=== PATIENT | female | born 1965 | race Caucasian/White ===

== ENCOUNTER 2018-03-11 01:17 | Emergency (ER) | payer BC, OTHER ==
[~2018-03-11] VITALS: Ht 170.2 cm; Wt 97.5 kg
[~2018-03-11 01:17] MED LIST: ESIDRIX25 MG PO; GABAPENTIN300 MG PO; JANUMET 50-1,01 EACH; LIPITOR10 MG PO; LISINOPRIL20 MG; NORVASC5 MG PO
--- OUTSIDE RECORDS SUMMARY | 2018-03-11 01:22 | XMS REPORT ---
Author Author Sheryl Kennedy [facility] eClinicalWorks Address Unknown Phone Unavailable Care Team Providers Care Clinical Quality Manager Name Role Phone Sheryl Kennedy CP Unavailable Allergies, Adverse Reactions, Alerts Substance Reaction Event Type penicillin as a baby Drug Allergy Septra diarrhea/vomiting Drug Allergy Macrodantin Info Not Available Drug Allergy Macrobid vomiting Drug Allergy vancomycin Info Not Available Non Drug Allergy Problems Problem Type Condition Code Onset Dates Condition Status Problem Obstructive sleep apnea G47.33 Active Problem Cervical radiculopathy M54.12 Active Problem Benign essential hypertension I10 Active Problem Insomnia, unspecified type G47.00 Active Problem Type 2 diabetes mellitus with hyperglycemia E11.65 Active Problem Vitamin D deficiency E55.9 Active Problem Overweight E66.3 Active Problem Peripheral neuropathy G62.9 Active Problem GERD (gastroesophageal reflux disease) K21.9 Active Problem Hyperlipidemia E78.5 Active Assessment GERD (gastroesophageal reflux disease) K21.9 Active Assessment Type 2 diabetes mellitus with hyperglycemia E11.65 Active Assessment Hyperlipidemia E78.5 Active Assessment Insomnia, unspecified type G47.00 Active Assessment Benign essential hypertension I10 Active Assessment Vitamin D deficiency E55.9 Active Assessment Encntr for general adult medical exam w/o abnormal findings Z00.00 Active Medications Medication Code System Code Instructions Start Date End Date Status Dosage Lisinopril [facility] [address]-21 40 MG Orally Once a day Active 1 tablet Atorvastatin Calcium [facility] [address]-45 40 MG Orally Once a day Active [address] [facility] [address]-78 20 MG Orally Once a day Active 1 tablet at bedtime Fish Oil [facility] [address]-42 1000 mg Orally twice a day (bid) Active [address] [facility] [address]-77 4 MG Orally every 6 hrs Active 1 tablet as needed Norel AD [facility] 42442-697-53 4-10-325 MG Orally every 4-6 hours July 15, 2016 Active 1 tablet as needed Amlodipine Besylate [facility] 38938729765 10 Active TAKE ONE TABLET BY MOUTH DAILY Hydrochlorothiazide [facility] [address]-58 25 MG Orally Once a day Active [address] [facility] [address]-96 160 MG Orally Once a day Active 1 tablet with a meal Ambien [facility] [address]-30 10 MG Orally Once a day prn Dec 31, 2015 Active 1 tablet at bedtime as needed Levaquin [facility] [address]-65 500 MG Orally Once a day Active 1 tablet Toujeo SoloStar [facility] [address]-02 300 UNIT/ML Subcutaneous once a day Active 40 units Vitamin D (Ergocalciferol) [facility] [address]-81 55266 UNIT Orally once per week July 15, 2016 Dec 30, 2016 Active [address] [facility] [address]22 500 MG Orally Six times a day Active 2 tablets as needed Hydrocodone-Acetaminophen [facility] [address]-16 5-500 MG Orally every 6 hrs Active 1 capsule as needed Norvasc [facility] [address]-75 10 MG Orally Once a day Active [address] [facility] [address]-04 300 MG Orally Three times a day Active 1 capsule Janumet XR [facility] [address]-24 50-1000 MG Orally daily Active 1 tablet with meals Jardiance [facility] [address]-68 25 MG Orally Once a day Mar 05, 2017 Active 1 tablet Turmeric Curcumin [facility] [address]77 500 MG Orally Active not defined Cinnamon [facility] [address]-63 500 MG Orally Active not defined Trulicity 1.5mg [facility] 6480-4245-96 1.5mg/0.5mL SQ Once a week Mar 05, 2017 Active 1.5mg/1 pen Vital Signs Date/Time: September 06, 2016 BMI 32.92 Index Weight 204 lbs Height 66 in Cardiac Monitoring Heart Rate 85 /min Blood Pressure Diastolic 82 mm Hg Blood Pressure Systolic 112 mm Hg Results Name Result Date Reference Range Unit Abnormality Flag EKG MONOFILAMENT FOOT EXAMINATION PERFORMED Summary Purpose eClinicalWorks Submission
--- OUTSIDE RECORDS SUMMARY | 2018-03-11 01:22 | XMS REPORT ---
Author Author Phil Overton [facility] eClinicalWorks Address Unknown Phone Unavailable Care Team Providers Care Spinning Room Worker Name Role Phone Phil Overton CP Unavailable Allergies, Adverse Reactions, Alerts Substance Reaction Event Type penicillin as a baby Drug Allergy Septra diarrhea/vomiting Drug Allergy Macrodantin Info Not Available Drug Allergy Macrobid vomiting Drug Allergy vancomycin Info Not Available Non Drug Allergy Problems Problem Type Condition Code Onset Dates Condition Status Assessment Rib pain on right side R07.81 Active Problem Cervical radiculopathy M54.12 Active Assessment Acid indigestion K30 Active Problem Peripheral neuropathy G62.9 Active Assessment Esophagitis K20.9 Active Problem GERD (gastroesophageal reflux disease) K21.9 Active Problem Type 2 diabetes mellitus with hyperglycemia E11.65 Active Problem Hyperlipidemia E78.5 Active Problem Other obesity due to excess calories E66.09 Active Problem Body mass index (BMI) of 31.0-31.9 in adult Z68.31 Active Assessment RUQ abdominal pain R10.11 Active Assessment Hx of colonic polyp Z86.010 Active Problem Hx of colonic polyp Z86.010 Active Assessment Fatty liver K76.0 Active Problem Vitamin D deficiency E55.9 Active Problem Insomnia, unspecified type G47.00 Active Problem Acid indigestion K30 Active Problem Fatty liver K76.0 Active Assessment Hyperlipidemia E78.5 Active Assessment Peripheral neuropathy G62.9 Active Assessment Body mass index (BMI) of 31.0-31.9 in adult Z68.31 Active Assessment Other obesity due to excess calories E66.09 Active Problem Obstructive sleep apnea G47.33 Active Problem Benign essential hypertension I10 Active Assessment Benign essential hypertension I10 Active Assessment Type 2 diabetes mellitus with hyperglycemia E11.65 Active Medications Medication Code System Code Instructions Start Date End Date Status Dosage Fish Oil ND 28266358231 1000 mg Orally twice a day (bid) Active 1 capsule Gabapentin ND 85773956184 300 MG Orally Three times a day Active 1 capsule Trulicity 1.5mg ND 26532811331 1.5mg/0.5mL SQ Once a week Mar 05, 2017 Active 1.5mg/1 pen Cinnamon ND 45742431130 500 MG Orally Active not defined Atorvastatin Calcium ND 21755076897 40 MG Orally Once a day Active 1 tablet Turmeric Curcumin ND 61141275127 500 MG Orally Active not defined Ashleigh Contour Test [facility] 16882523494 - In Vitro use qid dx: October 05, 2016 Active as directed Microlet Lancets ND 58737279800 - in vitro use bid dx: E11October 05, 2016 Active as directed Hydrochlorothiazide ND 84708084102 25 MG Orally Once a day Active 1 tablet Lisinopril ND 83194838946 40 MG Orally Once a day Active 1 tablet Toujeo SoloStar [facility] 97259405475 300 UNIT/ML Subcutaneous once a day Active 40 units Jardiance ND 21816417507 25 MG Orally Once a day Mar 05, 2017 Active 1 tablet Norvasc [facility] 20909297322 10 MG Orally Once a day Active 1 tablet Famotidine ND 66168923583 20 MG Orally Once a day Active 1 tablet at bedtime Allergy ND 09872912781 4 MG Orally every 6 hrs Active 1 tablet as needed MetFORMIN HCl ER ND 22306152760 500 MG Orally twice a day (bid) Dec 02, 2016 Active 2 tablet with evening meal Fenofibrate ND 35303082279 160 MG Orally Once a day Active 1 tablet with a meal Vital Signs Date/Time: Feb 13, 2017 BMI 31.63 Index Weight 196 lbs Height 66 in Cardiac Monitoring Heart Rate 75 /min Blood Pressure Diastolic 74 mm Hg Blood Pressure Systolic 116 mm Hg Results Name Result Date Reference Range Unit Abnormality Flag Ribs Unil 2 View- Right Xray Summary Purpose eClinicalWorks Submission
--- OUTSIDE RECORDS SUMMARY | 2018-03-11 01:22 | XMS REPORT | Continuity of Care Document ---
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 [id number] 07/15/2015 07/15/2015 [facility] Test results [id number] 07/15/2015 07/15/2015 [facility] Test results [id number] 07/15/2015 07/15/2015 [facility] Test results [id number] 07/15/2015 07/15/2015 [facility] Test results [id number] 07/15/2015 07/15/2015 [facility] Test results [id number] 07/15/2015 07/15/2015 [facility] Test results [id number] 07/15/2015 07/15/2015 [facility] BITELY - [place] [id number] 07/17/2015 07/17/2015 [facility] [place] [id number] 07/17/2015 07/17/2015 [facility] [id number] 07/17/2015 07/17/2015 [facility] [id number] 07/17/2015 07/17/2015 [facility] [id number] 07/17/2015 07/17/2015 [facility] Unknown [id number] 07/17/2015 07/17/2015 [facility] Unknown [id number] 07/17/2015 07/17/2015 [facility] Unknown [id number] 07/17/2015 07/17/2015 [facility] Unknown [id number] 07/17/2015 07/17/2015 [facility] Unknown [id number] 07/17/2015 07/17/2015 [facility] Unknown [id number] 07/17/2015 07/17/2015 [facility] Unknown [id number] 07/17/2015 07/17/2015 [facility] [place] [id number] 07/17/2015 07/17/2015 [facility] Unknown [id number] 07/17/2015 07/17/2015 [facility] Unknown [id number] 07/17/2015 07/17/2015 [facility] Unknown [id number] 07/17/2015 07/17/2015 [facility] Unknown [id number] 07/17/2015 07/17/2015 [facility] Unknown [id number] 07/17/2015 07/17/2015 [facility] Unknown [id number] 07/17/2015 07/17/2015 [facility] ALEX - GUANAKO [id number] 08/05/2015 08/05/2015 [facility] ALEX - GUANAKO [id number] 08/05/2015 08/05/2015 [facility] ALEX - GUANAKO [id number] 08/05/2015 08/05/2015 [facility] ALEX BURNHAM [id number] 08/05/2015 08/05/2015 [facility] possible kidney inf [id number] 12/31/2015 12/31/2015 [facility] possible kidney inf [id number] 12/31/2015 12/31/2015 [facility] possible kidney inf [id number] 12/31/2015 12/31/2015 [facility] Ear infection [id number] 01/28/2016 01/28/2016 [facility] Ear infection [id number] 01/28/2016 01/28/2016 [facility] 3 MONTH FOLLOW UP [id number] 06/09/2016 06/09/2016 [facility] Procedures Procedure Code Date Perfomer Comments Source
--- OUTSIDE RECORDS SUMMARY | 2018-03-11 01:22 | XMS REPORT ---
Author Author Sera Duval Organization eClinicalWorks Address Unknown Phone Unavailable Care Team Providers Care Flash Welder Name Role Phone Sera Duval CP Unavailable Allergies No Known Allergies Problems Problem Type Condition Code Onset Dates [...] disease) K21.9 Active Problem Hyperlipidemia E78.5 Active Medications No Known Medications Results No Known Results Summary Purpose eClinicalWorks Submission
--- OUTSIDE RECORDS SUMMARY | 2018-03-11 01:22 | XMS REPORT ---
Author Author Phil Overton [facility] eClinicalWorks Address Unknown Phone Unavailable Care Team Providers Care Upper Doubler Name Role Phone Phil Overton CP Unavailable Allergies, Adverse Reactions, Alerts Substance Reaction Event Type penicillin as a baby Drug Allergy Septra diarrhea/vomiting Drug Allergy Macrobid vomiting Drug Allergy Problems Problem Type Condition Code [...] K21.9 Active Problem Hyperlipidemia E78.5 Active Assessment Encounter to discuss test results Z71.89 Active Assessment Acute non-recurrent pansinusitis J01.40 Active Assessment Type 2 diabetes mellitus with hyperglycemia E11.65 Active Assessment Hyperlipidemia E78.5 Active Assessment Vitamin D deficiency E55.9 Active Assessment Peripheral neuropathy G62.9 Active Assessment Insomnia, unspecified type G47.00 Active Assessment Benign essential hypertension I10 Active Medications Medication Code System Code Instructions Start Date End Date Status Dosage Amlodipine Besylate [facility] 01301063523 10 Active TAKE ONE TABLET BY MOUTH DAILY Janumet XR [facility] [address]-09 50-1000 MG Orally daily Active 1 tablet with meals Hydrochlorothiazide [facility] [address]-74 25 MG Orally Once a day Active 1 tablet Toujeo SoloStar [facility] [address]-60 300 UNIT/ML Subcutaneous once a day Active 40 units Jardiance [facility] [address]-27 25 MG Orally Once a day Active 1 tablet Famotidine [facility] [address]-53 20 MG Orally Once a day Active 1 tablet at bedtime Vitamin D (Ergocalciferol) [facility] [address]-15 87289 UNIT Orally once per week July 15, 2016 Dec 30, 2016 Active 1 capsule Lisinopril [facility] [address]-12 40 mg Orally Once a day Active 1 tablet Trulicity 1.5mg [facility] 4719-8433-82 1.5mg/0.5mL SQ Once a week Active 1.5mg/1 pen Fenofibrate [facility] [address]-97 160 MG Orally Once a day Active 1 tablet with a meal Levaquin [facility] [address]-67 500 MG Orally Once a day July 15, 2016 July 25, 2016 Active 1 tablet Norel AD [facility] 52439-617-15 4-10-325 MG Orally every 4-6 hours July 15, 2016 Active 1 tablet as needed Atorvastatin Calcium [facility] [address]-14 40 MG Orally Once a day Active 1 tablet Ambien [facility] [address]-12 10 MG Orally Once a day prn Dec 31, 2015 Active 1 tablet at bedtime as needed Norvasc [facility] [address]-12 10 MG Orally Once a day Active 1 tablet Gabapentin [facility] [address]-37 300 MG Orally Three times a day Active 1 capsule Fish Oil [facility] [address]-41 1000 mg Orally twice a day (bid) Active 1 capsule Vital Signs Date/Time: July 15, 2016 BMI 31.95 Index Weight 198 lbs Height 66 in Cardiac Monitoring Heart Rate 84 /min Blood Pressure Diastolic 78 mm Hg Blood Pressure Systolic 124 mm Hg Results No Known Results Summary Purpose eClinicalWorks Submission
--- OUTSIDE RECORDS SUMMARY | 2018-03-11 01:22 | XMS REPORT ---
Author Author Sheryl Kennedy [facility] eClinicalWorks Address Unknown Phone Unavailable Care Team Providers Care Zigzag Elastic Attacher Name Role Phone Sheryl Kennedy CP Unavailable Allergies No Known Allergies Problems [...] K21.9 Active Problem Hyperlipidemia E78.5 Active Medications Medication Code System Code Instructions Start Date End Date Status Dosage Microlet Lancets [facility] [address]-33 - in vitro use bid dx: October 05, 2016 Active as directed Ashleigh Contour Test [facility] [address]-90 - In Vitro use qid dx: October 05, 2016 Active as directed Results No Known Results Summary Purpose eClinicalWorks Submission
--- OUTSIDE RECORDS SUMMARY | 2018-03-11 01:22 | XMS REPORT ---
Author Mandy Rivas [facility] eClinicalWorks Address Unknown Phone Unavailable Care Team Providers Care Manager Pmo Name Role Phone Mandy Adams CP Unavailable Allergies, Adverse Reactions, Alerts Substance Reaction Event Type penicillin as a baby Drug Allergy Septra diarrhea/vomiting Drug Allergy Macrodantin Info Not Available Drug Allergy Macrobid vomiting Drug Allergy vancomycin Info Not Available Non Drug Allergy Problems Problem Type Condition Code Onset Dates Condition Status Problem GERD (gastroesophageal reflux disease) K21.9 Active Problem Type 2 diabetes mellitus with hyperglycemia E11.65 Active Problem Hyperlipidemia E78.5 Active Problem Other obesity due to excess calories E66.09 Active Problem Body mass index (BMI) of 31.0-31.9 in adult Z68.31 Active Problem Hx of colonic polyp Z86.010 Active Problem Vitamin D deficiency E55.9 Active Problem Insomnia, unspecified type G47.00 Active Problem Acid indigestion K30 Active Problem Fatty liver K76.0 Active Assessment Strain of right wrist, initial encounter S66.911A Active Problem Obstructive sleep apnea G47.33 Active Problem Benign essential hypertension I10 Active Assessment Plantar fasciitis of left foot M72.2 Active Problem Cervical radiculopathy M54.12 Active Assessment Dysuria R30.0 Active Problem Peripheral neuropathy G62.9 Active Medications Medication Code System Code Instructions Start Date End Date Status Dosage Famotidine [facility] 99500220689 20 MG Orally Once a day Active 1 tablet at bedtime Vitamin D (Ergocalciferol) [facility] 84252769145 50,000 Orally once per week Active 1 capsule Jardiance [facility] 78954734513 25 MG Orally Once a day Active 1 tablet MetFORMIN HCl ER [facility] [address]-12 500 mg Orally twice a day (bid) Dec 02, 2016 Active 2 tablet with evening meal Doxycycline [facility] [address]-31 50 mg Orally Once a day Active 1 capsule on an empty stomach in the morning Norvasc [facility] 21457320777 10 MG Orally Once a day Active 1 tablet Toujeo SoloStar [facility] 49352657238 300 UNIT/ML Subcutaneous once a day Active 40 units Microlet Lancets [facility] 76546936386 - in vitro use bid dx: E11.65 Active as [facility] [address]-26 10 Active TAKE ONE TABLET BY MOUTH DAILY Gabapentin [facility] 91141829306 300 MG Orally Three times a day Active 1 capsule Vitamin D (Ergocalciferol) [facility] 83874283131 72132 UNIT Orally q weekly, LAST REFILL, MUST SEE DOCTOR Apr 19, 2017 Active 1 capsule MetFORMIN HCl ER [facility] 56929273142 500 Orally twice a day (bid) Active 2 tablet with evening meal Atorvastatin Calcium [facility] 10290055219 40 MG Orally Once a day Active 1 tablet Fenofibrate [facility] 19728570082 160 MG Orally Once a day Active 1 tablet with a meal Allergy [facility] 13667559390 4 MG Orally every 6 hrs Active 1 tablet as needed Lisinopril [facility] 22899328596 40 MG Orally Once a day Active 1 tablet Ashleigh Contour Test [facility] 16649355783 - Active CHECK BLOOD SUGAR FOUR TIMES A DAY Trulicity 1.5mg [facility] 67516532067 1.5mg/0.5mL SQ Once a week Active 1.5mg/1 pen Myrbetriq [facility] 29160113233 25 MG Orally Once a day Active 1 tablet Vital Signs Date/Time: May 16, 2017 BMI 31.63 Index Weight 196 lbs Height 66 in Cardiac Monitoring Heart Rate 70 /min Blood Pressure Diastolic 88 mm Hg Blood Pressure Systolic 120 mm Hg Results Name Result Date Reference Range Unit Abnormality Flag URINE AUTO W/O SCOPE ----Spec [place] 1.015 20170516 ----Turbidity Clear 20170516 ----Glucose Clear 20170516 ----Ketones Neg 20170516 ----Blood Trace 20170516 ----Bili Neg 20170516 ----Color [place] 20170516 ----pH 6.0 20170516 ----Leuk Est Neg 20170516 ----Nitrite Neg 20170516 ----Urobilinogen 0.2 20170516 ----Protein Neg 20170516 Summary Purpose eClinicalWorks Submission
--- OUTSIDE RECORDS SUMMARY | 2018-03-11 01:22 | XMS REPORT ---
Author Author Sera Duval Organization eClinicalWorks Address Unknown Phone Unavailable Care Team Providers Care Costume Designer Name Role Phone Sera Duval CP Unavailable Allergies No Known Allergies Problems Problem Type Condition Code Onset Dates Condition Status Problem Cervical radiculopathy M54.12 Active Problem Overweight E66.3 Active Problem Peripheral neuropathy G62.9 Active Problem Obstructive sleep apnea G47.33 Active Problem Benign essential hypertension I10 Active Problem BMI 32.0-32.9,adult Z68.32 Active Problem Vitamin D deficiency E55.9 Active Problem Fatty liver K76.0 Active Problem GERD (gastroesophageal reflux disease) K21.9 Active Problem Hyperlipidemia E78.5 Active Problem Insomnia, unspecified type G47.00 Active Problem Type 2 diabetes mellitus with hyperglycemia E11.65 Active Medications No Known Medications Results No Known Results Summary Purpose eClinicalWorks Submission
--- OUTSIDE RECORDS SUMMARY | 2018-03-11 01:22 | XMS REPORT ---
Author Author Sheryl Kennedy [facility] eClinicalWorks Address Unknown Phone Unavailable Care Team Providers Care Central Aisle Cashier Name Role Phone Sheryl Kennedy CP Unavailable [...] K21.9 Active Problem Hyperlipidemia E78.5 Active Assessment Visit for suture removal Z48.02 Active Assessment Plantar fasciitis M72.2 Active Assessment Colon cancer screening Z12.11 Active Assessment RUQ pain R10.11 Active Medications Medication Code System Code Instructions Start Date End Date Status Dosage Jardiance [facility] [address]-40 25 MG Orally Once a day Mar 05, 2017 Active 1 tablet Janumet XR [facility] [address]-01 50-1000 MG Orally daily Active 1 tablet with meals Microlet Lancets [facility] [address]-12 - in vitro use bid dx: E11October 05, 2016 Active as directed Ashleigh Contour Test [facility] [address]-05 - In Vitro use bid dx: E11October 05, 2016 Active as directed Gabapentin [facility] [address]-74 300 MG Orally Three times a day Active 1 capsule Allergy [facility] [address]-01 4 MG Orally every 6 hrs Active 1 tablet as needed Hydrochlorothiazide [facility] [address]-08 25 MG Orally Once a day Active 1 tablet MiraFIBER [facility] 90443-30436 500 MG Orally Six times a day Active 2 tablets as needed Trulicity 1.5mg [facility] 9401-0706-58 1.5mg/0.5mL SQ Once a week Mar 05, 2017 Active 1.5mg/1 pen Ambien [facility] [address]-40 10 MG Orally Once a day prn Dec 31, 2015 Active 1 tablet at bedtime as needed Norvasc [facility] [address]-34 10 MG Orally Once a day Active 1 tablet Fish Oil [facility] [address]-17 1000 mg Orally twice a day (bid) Active 1 capsule Atorvastatin Calcium [facility] [address]-47 40 MG Orally Once a day Active 1 tablet Famotidine [facility] [address]-95 20 MG Orally Once a day Active 1 tablet at bedtime Hydrocodone-Acetaminophen [facility] [address]-51 5-500 MG Orally every 6 hrs Active 1 capsule as needed Lisinopril [facility] [address]-78 40 MG Orally Once a day Active 1 tablet Vitamin D (Ergocalciferol) [facility] [address]-69 98243 UNIT Orally once per week July 15, 2016 Dec 30, 2016 Active 1 capsule Amlodipine Besylate [facility] 36450604789 10 Active TAKE ONE TABLET BY MOUTH DAILY Levaquin [facility] [address]-62 500 MG Orally Once a day Active 1 tablet Fenofibrate [facility] [address]-31 160 MG Orally Once a day Active 1 tablet with a meal Norel AD [facility] [address]822-89 4-10-325 MG Orally every 4-6 hours July 15, 2016 Active 1 tablet as needed Tougenao SoloStar [facility] [address]-09 300 UNIT/ML Subcutaneous once a day Active 40 units Turmeric Curcumin [facility] 94103-04378 500 MG Orally Active not defined Cinnamon [facility] [address]-85 500 MG Orally Active not defined Vital Signs Date/Time: November 01, 2016 BMI 32.60 Index Weight 202 lbs Height 66 in Cardiac Monitoring Heart Rate 70 /min Blood Pressure Diastolic 84 mm Hg Blood Pressure Systolic 116 mm Hg Results No Known Results Summary Purpose eClinicalWorks Submission
--- OUTSIDE RECORDS SUMMARY | 2018-03-11 01:22 | XMS REPORT ---
Author Author Sheryl Kennedy [facility] eClinicalWorks Address Unknown Phone Unavailable Care Team Providers Care Button Decorating Machine Operator Name Role Phone Sheryl Kennedy CP Unavailable [...] Date End Date Status Dosage Microlet Lancets [facility] [address]-40 - in vitro use bid dx: E11October 05, 2016 Active as directed Ashleigh Contour Test [facility] [address]-71 - In Vitro use bid dx: October 05, 2016 Active as directed Results No Known Results Summary Purpose eClinicalWorks Submission
--- OUTSIDE RECORDS SUMMARY | 2018-03-11 01:22 | XMS REPORT ---
Author Author Sera Duval Organization eClinicalWorks Address Unknown Phone Unavailable Care Team Providers Care Elementary Reading Tutor Name Role Phone Sera Duval CP Unavailable Allergies No Known Allergies Problems Problem Type Condition Code Onset Dates Condition Status Problem Overweight E66.3 Active Problem Peripheral neuropathy G62.9 Active Problem Cervical radiculopathy M54.12 Active Problem Obstructive sleep apnea G47.33 Active Problem Benign essential hypertension I10 Active Problem BMI 32.0-32.9,adult Z68.32 Active Problem Vitamin D deficiency E55.9 Active Problem Fatty liver K76.0 Active Problem Hyperlipidemia E78.5 Active Problem GERD (gastroesophageal reflux disease) K21.9 Active Problem Insomnia, unspecified type G47.00 Active Problem Type 2 diabetes mellitus with hyperglycemia E11.65 Active Medications No Known Medications Results No Known Results Summary Purpose eClinicalWorks Submission
--- OUTSIDE RECORDS SUMMARY | 2018-03-11 01:22 | XMS REPORT ---
Author Author Phil Overton Organization eClinicalWorks Address Unknown Phone Unavailable Care Team Providers Care Manager Of Security Name Role Phone Phil Overton CP Unavailable Allergies No Known Allergies Problems Problem Type Condition Code Onset Dates Condition Status Problem Type 2 diabetes mellitus with hyperglycemia E11.65 Active Problem Vitamin D deficiency E55.9 Active Problem Insomnia, unspecified type G47.00 Active Problem Intermittent claudication I73.9 Active Problem Acid indigestion K30 Active Problem Leukocytosis, unspecified type D72.829 Active Problem Hx of colonic polyp Z86.010 Active Problem Fatty liver K76.0 Active Problem Other obesity due to excess calories E66.09 Active Problem Body mass index (BMI) of 31.0-31.9 in adult Z68.31 Active Problem Cervical radiculopathy M54.12 Active Problem Peripheral neuropathy G62.9 Active Problem Obstructive sleep apnea G47.33 Active Problem GERD (gastroesophageal reflux disease) K21.9 Active Problem Benign essential hypertension I10 Active Problem Hyperlipidemia E78.5 Active Medications Medication Code System Code Instructions Start Date End Date Status Dosage Ashleigh Contour Test [facility] 76656630036 - In Vitro use qid dx: E11.65 Active as directed Results No Known Results Summary Purpose eClinicalWorks Submission
--- OUTSIDE RECORDS SUMMARY | 2018-03-11 01:22 | XMS REPORT ---
Author Author Sera Duval [facility] eClinicalWorks Address Unknown Phone Unavailable Care Team Providers Care Textile Conservator Name Role Phone Sera Duval CP Unavailable [...] K30 Active Problem Fatty liver K76.0 Active Problem Obstructive sleep apnea G47.33 Active Problem Benign essential hypertension I10 Active Problem Cervical radiculopathy M54.12 Active Assessment Hyperlipidemia E78.5 Active Problem Peripheral neuropathy G62.9 Active Medications Medication Code System Code Instructions Start Date End Date Status Dosage Fenofibrate [facility] 08449230175 160 MG Orally Once a day Active 1 tablet with a meal Results No Known Results Summary Purpose eClinicalWorks Submission
--- OUTSIDE RECORDS SUMMARY | 2018-03-11 01:22 | XMS REPORT ---
Author Author Mandy Adams [facility] eClinicalWorks Address Unknown Phone Unavailable Care Team Providers Care Respiratory Therapy Director Name Role Phone Mandy Adams CP Unavailable [...] Active Problem Peripheral neuropathy G62.9 Active Problem BMI 32.0-32.9,adult Z68.32 Active Assessment BMI 32.0-32.9,adult Z68.32 Active Problem Vitamin D deficiency E55.9 Active Problem Fatty liver K76.0 Active Problem GERD (gastroesophageal reflux disease) K21.9 Active Problem Hyperlipidemia E78.5 Active Problem Insomnia, unspecified type G47.00 Active Problem Type 2 diabetes mellitus with hyperglycemia E11.65 Active Assessment Peripheral neuropathy G62.9 Active Assessment Obstructive sleep apnea G47.33 Active Assessment Fatty liver K76.0 Active Assessment RUQ pain R10.11 Active Assessment Type 2 diabetes mellitus with hyperglycemia E11.65 Active Assessment Benign essential hypertension I10 Active Assessment Insomnia, unspecified type G47.00 Active Problem Obstructive sleep apnea G47.33 Active Assessment Hyperlipidemia E78.5 Active Problem Benign essential hypertension I10 Active Medications Medication Code System Code Instructions Start Date End Date Status Dosage Turmeric Curcumin [facility] [address]11 500 MG Orally Active not defined Cinnamon [facility] [address]-48 500 MG Orally Active not defined Janumet XR [facility] [address]-25 50-1000 MG Orally daily Inactive 1 tablet with meals MetFORMIN HCl ER [facility] [address]-13 500 MG Orally twice a day (bid) Dec 02, 2016 Active 2 tablet with evening meal Microlet Lancets [facility] [address]-67 - in vitro use bid dx: E11.65 October 05, 2016 Active as directed Hydrocodone-Acetaminophen [facility] [address]-61 5-500 MG Orally every 6 hrs Active 1 capsule as needed MiraFIBER [facility] [address]30 500 MG Orally Six times a day Active 2 tablets as needed Allergy [facility] [address]-01 4 MG Orally every 6 hrs Active 1 tablet as needed Toujeo SoloStar [facility] [address]-57 300 UNIT/ML Subcutaneous once a day Active 40 units Hydrochlorothiazide [facility] [address]-28 25 MG Orally Once a day Active 1 tablet Levaquin [facility] [address]-70 500 MG Orally Once a day Active 1 tablet Vitamin D (Ergocalciferol) [facility] [address]-21 01343 UNIT Orally once per week July 15, 2016 Dec 30, 2016 Active 1 capsule Amlodipine Besylate [facility] 98964947799 10 Active TAKE ONE TABLET BY MOUTH DAILY Ambien [facility] [address]-94 10 MG Orally Once a day prn Dec 31, 2015 Active 1 tablet at bedtime as needed Fish Oil [facility] [address]-21 1000 mg Orally twice a day (bid) Active 1 capsule Gabapentin [facility] [address]-86 300 MG Orally Three times a day Active 1 capsule Norel AD [facility] [address]47[address]-24 4-10-325 MG Orally every 4-6 hours July 15, 2016 Active 1 tablet as needed Trulicity 1.5mg [facility] [address]-43 1.5mg/0.5mL SQ Once a week Mar 05, 2017 Active 1.5mg/1 pen Jardiance [facility] [address]-19 25 MG Orally Once a day Mar 05, 2017 Active 1 tablet Lisinopril [facility] [address]-29 40 MG Orally Once a day Active 1 tablet Norvasc [facility] [address]-23 10 MG Orally Once a day Active 1 tablet Ashleigh Contour Test [facility] [address]-46 - In Vitro use qid dx: E11.65 October 05, 2016 Active as directed Atorvastatin Calcium [facility] [address]-50 40 MG Orally Once a day Active 1 tablet Fenofibrate [facility] [address]-28 160 MG Orally Once a day Active 1 tablet with a meal Famotidine [facility] [address]-15 20 MG Orally Once a day Active 1 tablet at bedtime Vital Signs Date/Time: Dec 02, 2016 BMI 32.28 Index Weight 200 lbs Height 66 in Cardiac Monitoring Heart Rate 78 /min Blood Pressure Diastolic 88 mm Hg Blood Pressure Systolic 132 mm Hg Results Name Result Date Reference Range Unit Abnormality Flag MONOFILAMENT FOOT EXAMINATION PERFORMED Summary Purpose eClinicalWorks Submission
--- OUTSIDE RECORDS SUMMARY | 2018-03-11 01:22 | XMS REPORT ---
Author Author Sera Duval Organization eClinicalWorks Address Unknown Phone Unavailable Care Team Providers Care Cistern Room Working Supervisor Name Role Phone Sera Duval CP Unavailable [...]
--- OUTSIDE RECORDS SUMMARY | 2018-03-11 01:22 | XMS REPORT ---
Author Mandy Rivas [facility] eClinicalWorks Address Unknown Phone Unavailable Care Team Providers Care Child Advocate Name Role Phone Mandy Adams CP Unavailable [...] G62.9 Active Problem BMI 32.0-32.9,adult Z68.32 Active Problem Vitamin D deficiency E55.9 Active Problem Fatty liver K76.0 Active Problem GERD (gastroesophageal reflux disease) K21.9 Active Problem Hyperlipidemia E78.5 Active Problem Insomnia, unspecified type G47.00 Active Problem Type 2 diabetes mellitus with hyperglycemia E11.65 Active Assessment Benign essential hypertension I10 Active Assessment Type 2 diabetes mellitus with hyperglycemia E11.65 Active Problem Obstructive sleep apnea G47.33 Active Assessment Hyperlipidemia E78.5 Active Problem Benign essential hypertension I10 Active Medications Medication Code System Code Instructions Start Date End Date Status Dosage Microlet Lancets [facility] [address]-21 - in vitro use bid dx: E11.65 October 05, 2016 Active as directed Famotidine [facility] [address]-23 20 MG Orally Once a day Active 1 tablet at bedtime Hydrochlorothiazide [facility] [address]-12 25 MG Orally Once a day Active 1 tablet Toujeo SoloStar [facility] [address]-88 300 UNIT/ML Subcutaneous once a day Active 40 units Atorvastatin Calcium [facility] [address]-84 40 MG Orally Once a day Active 1 tablet Allergy [facility] [address]-52 4 MG Orally every 6 hrs Active 1 tablet as needed Trulicity 1.5mg [facility] [address]-91 1.5mg/0.5mL SQ Once a week Mar 05, 2017 Active 1.5mg/1 pen Cinnamon [facility] [address]-88 500 MG Orally Active not defined Lisinopril [facility] [address]-53 40 MG Orally Once a day Active 1 tablet Gabapentin [facility] [address]-36 300 MG Orally Three times a day Active 1 capsule Fish Oil [facility] [address]-31 1000 mg Orally twice a day (bid) Active 1 capsule Fenofibrate [facility] [address]-81 160 MG Orally Once a day Active 1 tablet with a meal Norvasc [facility] [address]-52 10 MG Orally Once a day Active 1 tablet MetFORMIN HCl ER [facility] [address]-31 500 MG Orally twice a day (bid) Dec 02, 2016 Active 2 tablet with evening meal Turmeric Curcumin [facility] [address]406 500 MG Orally Active not defined Vitamin D (Ergocalciferol) [facility] [address]-04 53592 UNIT Orally once per week July 15, 2016 Dec 30, 2016 Active 1 capsule Ashleigh Contour Test [facility] [address]-76 - In Vitro use qid dx: E11.65 October 05, 2016 Active as directed Jardiance [facility] [address]-79 25 MG Orally Once a day Mar 05, 2017 Active 1 tablet Vital Signs Date/Time: Dec 23, 2016 BMI 32.12 Index Weight 199 lbs Height 66 in Cardiac Monitoring Heart Rate 84 /min Blood Pressure Diastolic 80 mm Hg Blood Pressure Systolic 120 mm Hg Results No Known Results Summary Purpose eClinicalWorks Submission
--- OUTSIDE RECORDS SUMMARY | 2018-03-11 01:23 | XMS REPORT ---
Author Author Sera Shelton [facility] eClinicalWorks Address Unknown Phone Unavailable Care Team Providers Care Vest Busheler Name Role Phone Nikita Sera CP Unavailable Allergies, Adverse Reactions, Alerts Substance Reaction Event Type penicillin as a baby Drug Allergy Septra diarrhea/vomiting Drug Allergy Encounters Encounter Location Date Consult [facility] September 02, 2013 Problems Problem Type Condition ICD-9 Code Onset Dates Condition Status Problem H/O parotidectomy V15.29 Active Problem Menorrhagia 626.2 Active Problem Umbilical hernia 553.1 Active Problem HTN (hypertension) 401.9 Active Problem Obesity 278.00 Active Problem Hyperlipidemia 272.4 Active Problem Fatty liver 571.8 Active Problem VIRIDIANA (obstructive sleep apnea) 327.23 Active Problem Menopause 627.2 Active Problem Uncontrolled diabetes mellitus 250.02 Active Assessment Umbilical hernia 553.1 Active Assessment Menorrhagia 626.2 Active Assessment H/O parotidectomy V15.29 Active Assessment Uncontrolled diabetes mellitus 250.02 Active Assessment Obesity 278.00 Active Assessment VIRIDIANA (obstructive sleep apnea) 327.23 Active Assessment Hyperlipidemia 272.4 Active Assessment Fatty liver 571.8 Active Assessment HTN (hypertension) 401.9 Active Medications Medication Code System Code Instructions Start Date End Date Status Dosage Hydrochlorothiazide [facility] [address]-66 25 MG Orally Once a day Active 1 tablet Atorvastatin Calcium [facility] [address]-29 20 MG Orally Once a day Active 1 tablet Janumet XR [facility] [address]-13 50-1000 MG Orally Twice a day Active 1 tablet with meals Lisinopril [facility] [address]-48 40 MG Orally Once a day Active 1 tablet Generess FE [facility] [address]-49 0.8-25 MG-MCG Orally Once a day Active 1 tablet Social History Social History Element Qualifiers Date Reported Depression Screening: . 09/04September 02, 2013 Flu Vaccine: . declines September 02, 2013 children . 3 September 02, 2013 Tobacco Use: . Are you a: never smoker September 02, 2013 Marital Status: . September 02, 2013 Do you drink alcohol? . 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
--- OUTSIDE RECORDS SUMMARY | 2018-03-11 01:23 | XMS REPORT ---
Author Author Phil Overton [facility] eClinicalWorks Address Unknown Phone Unavailable Care Team Providers Care Set And Exhibit Designer Name Role Phone Phil Overton CP Unavailable [...] of 31.0-31.9 in adult Z68.31 Active Assessment Intermittent claudication I73.9 Active Problem Cervical radiculopathy M54.12 Active Problem Peripheral neuropathy G62.9 Active Problem Obstructive sleep apnea G47.33 Active Problem GERD (gastroesophageal reflux disease) K21.9 Active Problem Benign essential hypertension I10 Active Problem Hyperlipidemia E78.5 Active Medications Medication Code System Code Instructions Start Date End Date Status Dosage Maria Luisa EstradaoStar [facility] 07998136023 300 UNIT/ML Subcutaneous once a day Active 40 units Lisinopril [facility] [address]-78 40 Active TAKE ONE TABLET BY MOUTH DAILY Microlet Lancets [facility] 16336950701 - in vitro use bid dx: E11.65 Active as directed MetFORMIN HCl ER [facility] 25044362877 500 mg Orally twice a day (bid) Dec 02, 2016 Active 2 tablet with evening meal Norvasc [facility] 32297496120 10 MG Orally Once a day Active 1 tablet Soliqua [facility] 27383041615 100-33 UNT-MCG/ML Subcutaneous Active not defined Vitamin D (Ergocalciferol) [facility] 08086384363 50,000 Orally once per week Active 1 capsule Trulicity 1.5mg [facility] 34301064334 1.5mg/0.5mL SQ Once a week Active 1.5mg/1 pen NovoLog Flexpen [facility] 71266179619 100 UNIT/ML Subcutaneous three times a day (tid) Active 10units Atorvastatin Calcium [place] 56729386610 40 MG Orally Once a day Active 1 tablet Ashleigh Contour Test [facility] 67367606334 - In Vitro use qid dx: E11.65 Active as directed Allergy ND 99953199785 4 MG Orally every 6 hrs Active 1 tablet as needed Famotidine ND 05806230486 20 MG Orally Once a day Active 1 tablet at bedtime Fenofibrate [facility] 87700638992 160 MG Orally Once a day Active 1 tablet with a meal Doxycycline [facility] [address]-39 50 mg Orally Once a day Active 1 capsule on an empty stomach in the morning Atorvastatin Calcium [facility] [address]-03 40 Active TAKE ONE TABLET BY MOUTH DAILY Jardiance [facility] 03391470300 25 MG Orally Once a day Active 1 tablet Vitamin D (Ergocalciferol) [facility] 54475409877 50,000 Active TAKE ONE CAPSULE BY MOUTH ONCE WEEKLY FOR 12 WEEKS Gabapentin [facility] 85151704135 300 MG Orally Three times a day Active 1 capsule Lisinopril [facility] 19392889305 40 MG Orally Once a day Active 1 tablet Myrbetriq [facility] 52028913147 25 MG Orally Once a day Active 1 tablet Results No Known Results Summary Purpose eClinicalWorks Submission
--- OUTSIDE RECORDS SUMMARY | 2018-03-11 01:23 | XMS REPORT ---
Author Author Mandy Adams [facility] eClinicalWorks Address Unknown Phone Unavailable Care Team Providers Care Landman Name Role Phone Mandy Adams CP Unavailable [...] of 31.0-31.9 in adult Z68.31 Active Assessment Benign essential hypertension I10 Active Assessment Sore throat J02.9 Active Assessment Type 2 diabetes mellitus with hyperglycemia E11.65 Active Problem Cervical radiculopathy M54.12 Active Problem Peripheral neuropathy G62.9 Active Problem Obstructive sleep apnea G47.33 Active Problem GERD (gastroesophageal reflux disease) K21.9 Active Problem Benign essential hypertension I10 Active Problem Hyperlipidemia E78.5 Active Medications Medication Code System Code Instructions Start Date End Date Status Dosage Gabapentin [facility] 71544613908 300 MG Orally Three times a day Active 1 capsule NovoLog Flexpen [facility] 49869548482 100 UNIT/ML Subcutaneous three times a day (tid) Active 10units Soliqua [facility] 24327489907 100-33 UNT-MCG/ML Subcutaneous Active not defined Lisinopril [facility] 46452649301 40 mg Orally Once a day Active [address] [facility] 65642104025 4 MG Orally every 6 hrs Active 1 tablet as needed Lisinopril [facility] [address]-98 40 Active TAKE ONE TABLET BY MOUTH DAILY Trulicity 1.5mg [facility] 63831106736 1.5mg/0.5mL SQ Once a week Active 1.5mg/1 pen Vitamin D (Ergocalciferol) [facility] 11016442472 50,000 Orally once per week Active [address] [facility] 30764858347 25 MG Orally Once a day Active 1 tablet Atorvastatin Calcium [facility] [address]-59 40 Active TAKE ONE TABLET BY MOUTH DAILY Ashleigh Contour Test [facility] 88192070155 - In Vitro use qid dx: E11.65 Active as directed Doxycycline [facility] [address]-63 50 mg Orally Once a day Active 1 capsule on an empty stomach in the morning Trulicity 1.5mg [facility] 62137886752 1.5mg/0.5mL SQ Once a week Active 1.5mg/1 pen Vitamin D (Ergocalciferol) [facility] 50228912799 50,000 Active TAKE ONE CAPSULE BY MOUTH ONCE WEEKLY FOR 12 WEEKS Toricarda EstradaoStar [facility] 77415318453 300 UNIT/ML Subcutaneous once a day Active [address] [facility] 69925000474 160 MG Orally Once a day Active 1 tablet with a meal Jardiance [facility] 37632467443 25 MG Orally Once a day Active 1 tablet Atorvastatin Calcium [facility] 16389855951 40 mg Orally Once a day Active 1 tablet Microlet Lancets [facility] 01476625832 - in vitro use bid dx: E11.65 Active as directed Norvasc [facility] 24549121361 10 mg Orally Once a day Active [address] [facility] 95659979925 20 MG Orally Once a day Active 1 tablet at bedtime Fenofibrate [facility] 31430582823 160 Orally Once a day Active 1 tablet with a meal MetFORMIN HCl ER [facility] [address]-32 500 mg Orally twice a day (bid) Dec 02, 2017 Active 2 tablets with food Vital Signs Date/Time: Jan 16, 2018 BMI 34.21 Index Weight 212 lbs Height 66 in Temperature 99.2 F Cardiac Monitoring Heart Rate 78 /min Blood Pressure Diastolic 70 mm Hg Blood Pressure Systolic 120 mm Hg Results Name Result Date Reference Range Unit Abnormality Flag CBC ----Platelets 284 20180116 ----NEUTROPHILS mid-0.7,gra-6.6 20180116 ----MCHC 32.3 20180116 ----MCH 30.7 20180116 ----MCV 95.1 20180116 ----WBC 8.4 20180116 ----RDW 14.1 20180116 ----RBC 4.46 20180116 ----Hemoglobin 13.7 20180116 ----Hematocrit 42.4 20180116 RAPID FLU ----Result negative 20180116 Summary Purpose eClinicalWorks Submission
--- OUTSIDE RECORDS SUMMARY | 2018-03-11 01:23 | XMS REPORT ---
Author Author Nu Guzman [facility] eClinicalWorks Address Unknown Phone Unavailable Care Team Providers Care Hip Hop Performers Name Role Phone Nu Guzman Unavailable Allergies, Adverse Reactions, Alerts Substance Reaction Event Type penicillin as a baby Drug Allergy Septra diarrhea/vomiting Drug Allergy Encounters Encounter Location Date Hospital Follow Up [facility] Mar 05, 2014 Home Sleep Study [facility] Mar 24, 2014 Consult [facility] September 02, 2013 cough [facility] October 31, 2013 FEVER/NAUSEATED [facility] Feb 25, 2014 Problems Problem Type Condition ICD-9 Code Onset Dates Condition Status Assessment Low grade fever 780.60 Active Problem Umbilical hernia 553.1 Active Problem H/O parotidectomy V15.29 Active Assessment Abdominal pain 789.00 Active Problem Obesity 278.00 Active Problem Menopause 627.2 Active Problem Hyperlipidemia 272.4 Active Problem VIRIDIANA (obstructive sleep apnea) 327.23 Active Problem Menorrhagia 626.2 Active Problem Uncontrolled diabetes mellitus 250.02 Active Problem Fatty liver 571.8 Active Medications Medication Code System Code Instructions Start Date End Date Status Dosage Janumet XR [facility] [address]-22 50-1000 MG Orally Twice a day Active 1 tablet with meals Atorvastatin Calcium [facility] [address]-47 20 MG Orally Once a day Active 1 tablet Norvasc [facility] [address]-07 10 mg Orally Once a day October 31, 2013 Active 1 tablet [facility]inopril [facility] [address]-92 40 MG Orally Once a day Active 1 tablet Bydureon [facility] [address]-93 2 MG Subcutaneous Active Unknown Hydrochlorothiazide [facility] [address]-07 25 MG Orally Once a day Active 1 tablet Social History Social History Element Qualifiers Date Reported Depression Screening: . 09/04Mar 31, 2014 Flu Vaccine: . declines Mar 31, 2014 Ethnicity . Status , Is kazakh your primary language? Yes Mar 31, 2014 children . 3 Mar 31, 2014 Tobacco Use: . Are you a: never smoker Mar 31, 2014 Marital Status: . Mar 31, 2014 Do you drink alcohol? . 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
--- OUTSIDE RECORDS SUMMARY | 2018-03-11 01:23 | XMS REPORT ---
Author Author Sera Shelton [facility] eClinicalWorks Address Unknown Phone Unavailable Care Team Providers Care Hand Tool Filer Name Role Phone Sera Shelton Unavailable Encounters Encounter Location Date Hospital Follow Up [facility] Mar 05, 2014 Home Sleep Study [facility] Mar 24, 2014 2 week follow up [facility] Mar 31, 2014 Unknown [facility] Apr 03, 2014 Consult [facility] September 02, 2013 cough [facility] October 31, 2013 FEVER/NAUSEATED [facility] Feb 25, 2014 Night 2 Sleep Study [facility] Apr 02, 2014 CPAP Follow Up [facility] Apr 14, 2014 Problems Problem Type Condition ICD-9 Code Onset Dates Condition Status Problem Menorrhagia 626.2 Active Problem Fatty liver 571.8 Active Problem VIRIDIANA (obstructive sleep apnea) 327.23 Active Problem H/O parotidectomy V15.29 Active Problem Umbilical hernia 553.1 Active Problem 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 09/04Apr 14, 2014 Flu Vaccine: . declines Apr 14, 2014 Ethnicity . Status , Is frisian your primary language? Yes Apr 14, 2014 children . 3 Apr 14, 2014 Tobacco Use: . Are you a: never smoker Apr 14, 2014 Marital Status: . Apr 14, 2014 Do you drink alcohol? . 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
--- OUTSIDE RECORDS SUMMARY | 2018-03-11 01:23 | XMS REPORT ---
Author Author Sera Shelton Organization eClinicalWorks Address Unknown Phone Unavailable Care Team Providers Care Chicken Handler Name Role Phone Sera Shelton CP Unavailable Encounters Encounter Location Date Hospital Follow Up [facility] Mar 05, 2014 Home Sleep Study [facility] Mar 24, 2014 Consult [facility] September 02, 2013 cough [facility] October 31, 2013 FEVER/NAUSEATED [facility] Feb 25, 2014 Problems Problem Type Condition ICD-9 Code Onset Dates Condition Status Problem Menorrhagia 626.2 Active Problem Fatty liver 571.8 Active Problem VIRIDIANA (obstructive sleep apnea) 327.23 Active Problem 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 09/04Mar 31, 2014 Flu Vaccine: . declines Mar 31, 2014 Ethnicity . Status , Is cypriot your primary language? Yes Mar 31, 2014 children . 3 Mar 31, 2014 Tobacco Use: . Are you a: never smoker Mar 31, 2014 Marital Status: . Mar 31, 2014 Do you drink alcohol? . 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
--- OUTSIDE RECORDS SUMMARY | 2018-03-11 01:23 | XMS REPORT ---
Author Author Phil Overton [facility] eClinicalWorks Address Unknown Phone Unavailable Care Team Providers Care Substation Maintenance Technician Name Role Phone Phil Overton CP Unavailable Allergies, Adverse Reactions, Alerts Substance Reaction Event Type penicillin as a baby Drug Allergy Septra diarrhea/vomiting Drug Allergy Macrodantin Info Not Available Drug Allergy Macrobid vomiting Drug Allergy vancomycin Info Not Available Non Drug Allergy Problems Problem Type Condition Code Onset Dates Condition Status Assessment Intermittent claudication I73.9 Active Problem GERD (gastroesophageal reflux disease) K21.9 Active Assessment Leukocytosis, unspecified type D72.829 Active Problem Hyperlipidemia E78.5 Active Assessment RLQ abdominal pain R10.31 Active Problem Type 2 diabetes mellitus with hyperglycemia E11.65 Active Problem Vitamin D deficiency E55.9 Active Problem Insomnia, unspecified type G47.00 Active Problem Intermittent claudication I73.9 Active Problem Acid indigestion K30 Active Assessment Type 2 diabetes mellitus with hyperglycemia E11.65 Active Assessment Vitamin D deficiency E55.9 Active Problem Leukocytosis, unspecified type D72.829 Active Assessment Encounter to discuss test results Z71.89 Active Problem Hx of colonic polyp Z86.010 Active Problem Fatty liver K76.0 Active Problem Other obesity due to excess calories E66.09 Active Problem Body mass index (BMI) of 31.0-31.9 in adult Z68.31 Active Assessment Peripheral neuropathy G62.9 Active Assessment Benign essential hypertension I10 Active Assessment Hyperlipidemia E78.5 Active Assessment GERD (gastroesophageal reflux disease) K21.9 Active Problem Cervical radiculopathy M54.12 Active Problem Peripheral neuropathy G62.9 Active Problem Obstructive sleep apnea G47.33 Active Problem Benign essential hypertension I10 Active Medications Medication Code System Code Instructions Start Date End Date Status Dosage MetFORMIN HCl ER ND 16537166434 500 mg Orally twice a day (bid) Dec 02, 2016 Active 2 tablet with evening meal Famotidine ND 13129587602 20 MG Orally Once a day Active 1 tablet at bedtime Atorvastatin Calcium ND 63140324284 40 MG Orally Once a day Active 1 tablet Jardiance [facility] 08437033681 25 MG Orally Once a day Active 1 tablet Myrbetriq [facility] 18736482708 25 MG Orally Once a day Active 1 tablet Lisinopril [facility] [address]-44 40 Active TAKE ONE TABLET BY MOUTH DAILY Ashleigh Contour Test [facility] 65100878351 - Active CHECK BLOOD SUGAR FOUR TIMES A DAY Gabapentin [facility] 88224313878 300 MG Orally Three times a day Active 1 capsule Trulicity 1.5mg [facility] 05348163371 1.5mg/0.5mL SQ Once a week Active 1.5mg/1 pen NovoLog Flexpen [facility] 70127800578 100 UNIT/ML Subcutaneous three times a day (tid) Active 10units Atorvastatin Calcium [facility] [address]-17 40 Active TAKE ONE TABLET BY MOUTH DAILY Doxycycline [facility] [address]-36 50 mg Orally Once a day Active 1 capsule on an empty stomach in the morning Toujeo SoloStar [facility] 70120478253 300 UNIT/ML Subcutaneous once a day Active 40 units Microlet Lancets [facility] 53325946335 - in vitro use bid dx: E11.65 Active as directed Norvasc [facility] 83053869772 10 MG Orally Once a day Active 1 tablet Lisinopril [facility] 20202018145 40 MG Orally Once a day Active 1 tablet Allergy [facility] 69615509873 4 MG Orally every 6 hrs Active 1 tablet as needed Vitamin D (Ergocalciferol) [facility] 42508255440 50,000 Active TAKE ONE CAPSULE BY MOUTH ONCE WEEKLY FOR 12 WEEKS Vitamin D (Ergocalciferol) [facility] 38834749041 50,000 Orally once per week Active 1 capsule Fenofibrate [facility] 19308085668 160 MG Orally Once a day Active 1 tablet with a meal Soliqua [facility] 48319527372 100-33 UNT-MCG/ML Subcutaneous Active not defined Vital Signs Date/Time: September 13, 2017 BMI 32.60 Index Weight 202 lbs Height 66 in Cardiac Monitoring Heart Rate 68 /min Blood Pressure Diastolic 64 mm Hg Blood Pressure Systolic 118 mm Hg Results Name Result Date Reference Range Unit Abnormality Flag CBC ----Platelets 317 [id number] ----NEUTROPHILS lym- 1.2, mid- 0.8, gra-7.7 20170914 ----MCHC 31.0 20170914 ----MCH 30.3 20170914 ----MCV 97.6 20170914 ----WBC 9.7 20170914 ----RDW 13.1 20170914 ----RBC 4.56 20170914 ----Hemoglobin 13.8 20170914 ----Hematocrit 44.5 20170914 Summary Purpose eClinicalWorks Submission
--- OUTSIDE RECORDS SUMMARY | 2018-03-11 01:23 | XMS REPORT ---
Author Author Phil Overton [facility] eClinicalWorks Address Unknown Phone Unavailable Care Team Providers Care Unit Clerk Name Role Phone Phil Overton CP Unavailable Allergies, Adverse Reactions, Alerts Substance Reaction Event Type penicillin as a baby Drug Allergy Septra diarrhea/vomiting Drug Allergy Encounters Encounter Location Date Hospital Follow Up [facility] Mar 05, 2014 Home Sleep Study [facility] Mar 24, 2014 2 week follow up [facility] Mar 31, 2014 Unknown [facility] Apr 03, 2014 Consult [facility] September 02, 2013 cough [facility] October 31, 2013 FEVER/NAUSEATED [facility] Feb 25, 2014 Night 2 Sleep Study [facility] Apr 02, 2014 CPAP Follow Up [facility] Apr 14, 2014 [...] 272.4 Active Problem Obesity 278.00 Active Assessment S/P hernia surgery V45.89 Active Assessment Elevated LFTs 790.6 Active Assessment Other follow-up examination V67.59 Active Assessment Encounter to discuss test results V65.49 Active Assessment Hyperlipidemia 272.4 Active Assessment Uncontrolled diabetes mellitus 250.02 Active Assessment HTN (hypertension), benign 401.1 Active Problem H/O parotidectomy V15.29 Active Assessment 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 Problem Umbilical hernia 553.1 Active Medications Medication Code System Code Instructions Start Date End Date Status Dosage Janumet XR [facility] [address]-57 50-1000 MG Orally Twice a day Active 1 tablet with meals Lisinopril [facility] [address]-96 40 MG Orally Once a day Active 1 tablet Bydureon [facility] [address]-95 2 MG Subcutaneous Active Unknown Norvasc [facility] [address]-42 10 mg Orally Once a day October 31, 2013 Active 1 tablet Hydrochlorothiazide [facility] [address]-18 25 MG Orally Once a day Active 1 tablet Atorvastatin Calcium [facility] [address]-41 20 MG Orally Once a day Inactive 1 tablet Social History Social History Element Qualifiers Date Reported Depression Screening: . 09/04Apr 14, 2014 Flu Vaccine: . declines Apr 14, 2014 Ethnicity . Status , Is chinese your primary language? Yes Apr 14, 2014 children . 3 Apr 14, 2014 Tobacco Use: . Are you a: never smoker Apr 14, 2014 Marital Status: . Apr 14, 2014 Do you drink alcohol? . 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 FILIPINO(-> OR=60 mL/min/1.73m2) 83 Summary Purpose eClinicalWorks Submission
--- OUTSIDE RECORDS SUMMARY | 2018-03-11 01:23 | XMS REPORT ---
Author Author Mandy Adams [facility] eClinicalWorks Address Unknown Phone Unavailable Care Team Providers Care Office Technologist Name Role Phone Mandy Adams CP Unavailable Allergies No Known Allergies Problems [...] Instructions Start Date End Date Status Dosage Keflex [facility] 71501098760 500 mg Orally every 12 hrs Jan 19, 2018 Jan 26, 2018 Active 1 capsule Results No Known Results Summary Purpose eClinicalWorks Submission
--- OUTSIDE RECORDS SUMMARY | 2018-03-11 01:23 | XMS REPORT ---
Author Author Phil Overton Organization eClinicalWorks Address Unknown Phone Unavailable Care Team Providers Care Dwarf Tree Grower Name Role Phone Phil Overton CP Unavailable [...] of 31.0-31.9 in adult Z68.31 Active Assessment Hyperlipidemia E78.5 Active Assessment Benign essential hypertension I10 Active Problem Cervical radiculopathy M54.12 Active Problem Peripheral neuropathy G62.9 Active Problem Obstructive sleep apnea G47.33 Active Problem GERD (gastroesophageal reflux disease) K21.9 Active Problem Benign essential hypertension I10 Active Problem Hyperlipidemia E78.5 Active Medications Medication Code System Code Instructions Start Date End Date Status Dosage Atorvastatin Calcium [facility] 93258580070 40 mg Orally Once a day Active [address] [facility] 36909179428 40 mg Orally Once a day Active 1 tablet Results No Known Results Summary Purpose eClinicalWorks Submission
--- OUTSIDE RECORDS SUMMARY | 2018-03-11 01:23 | XMS REPORT ---
Author Author Phil Overton [facility] eClinicalWorks Address Unknown Phone Unavailable Care Team Providers Care Operator Electronic Warfare Name Role Phone Phil Overton CP Unavailable [...] Active Problem Fatty liver K76.0 Active Assessment Vitamin D deficiency E55.9 Active Assessment Hyperlipidemia E78.5 Active Assessment Plantar fascia syndrome M72.2 Active Problem Obstructive sleep apnea G47.33 Active Problem Benign essential hypertension I10 Active Assessment Type 2 diabetes mellitus with hyperglycemia E11.65 Active Problem Cervical radiculopathy M54.12 Active Assessment Benign essential hypertension I10 Active Problem Peripheral neuropathy G62.9 Active Medications Medication Code System Code Instructions Start Date End Date Status Dosage Cyrilurekha EstradaoStar ND 57969946659 300 UNIT/ML Subcutaneous once a day Active 40 units Gabapentin ND 94569074528 300 MG Orally Three times a day Active 1 capsule MetFORMIN HCl ER ND 16722716942 500 mg Orally twice a day (bid) Dec 02, 2016 Active 2 tablet with evening meal Famotidine ND 61052602123 20 MG Orally Once a day Active 1 tablet at bedtime Ashliegh Contour Test [facility] 72067269533 - Active CHECK BLOOD SUGAR FOUR TIMES A DAY NovoLog Flexpen ND 22818113613 100 UNIT/ML Subcutaneous three times a day (tid) Active 10units Lisinopril [facility] [address]-21 40 Active TAKE ONE TABLET BY MOUTH DAILY Norvasc [facility] 64311266228 10 MG Orally Once a day Active 1 tablet Vitamin D (Ergocalciferol) [facility] 57073673489 50,000 Active TAKE ONE CAPSULE BY MOUTH ONCE WEEKLY FOR 12 WEEKS Jardiance [facility] 44102963374 25 MG Orally Once a day Active 1 tablet Allergy [facility] 58930495308 4 MG Orally every 6 hrs Active 1 tablet as needed Fenofibrate [facility] 02917439474 160 MG Orally Once a day Active 1 tablet with a meal Myrbetriq [facility] 66559097582 25 MG Orally Once a day Active 1 tablet Doxycycline [facility] [address]-08 50 mg Orally Once a day Active 1 capsule on an empty stomach in the morning Lisinopril [facility] 94418483517 40 MG Orally Once a day Active 1 tablet Atorvastatin Calcium [facility] 76400019250 40 MG Orally Once a day Active 1 tablet Atorvastatin Calcium [facility] [address]-82 40 Active TAKE ONE TABLET BY MOUTH DAILY Soliqua [facility] 15107258488 100-33 UNT-MCG/ML Subcutaneous Active not defined Vitamin D (Ergocalciferol) [facility] 96704876277 50,000 Orally once per week Active 1 capsule Microlet Lancets [facility] 14522008664 - in vitro use bid dx: E11.65 Active as directed Trulicity 1.5mg [facility] 76852262266 1.5mg/0.5mL SQ Once a week Active 1.5mg/1 pen Vital Signs Date/Time: September 05, 2017 BMI 33.08 Index Weight 205 lbs Height 66 in Cardiac Monitoring Heart Rate 82 /min Blood Pressure Diastolic 64 mm Hg Blood Pressure Systolic 116 mm Hg Results Name Result Date Reference Range Unit Abnormality Flag Vitamin D, 25-Hydroxy ----Vitamin D, 25-Hydroxy 33.9 20170906 30.0-100.0 ng/mL Microalb/Creat Ratio, Randm Ur ----Creatinine, Urine 73.5 [id number] Not Estab. mg/dL ----Alb/Creat Ratio 68.3 20170906 0.0-30.0 mg/g creat H ----Albumin, Urine 50.2 [id number] Not Estab. ug/mL Comp. Metabolic Panel (14) ----A/G Ratio 1.9 [id number] 1.2-2.2 ----Globulin, Total 2.3 99562224 1.5-4.5 g/dL ----Alkaline Phosphatase 59 16041966 39-117 IU/L ----Bilirubin, Total 0.3 53298317 0.0-1.2 mg/dL ----Chloride 101 56436534 96-106 mmol/L ----ALT (SGPT) 28 86362711 0-32 IU/L ----Potassium 4.0 46510043 3.5-5.2 mmol/L ----AST (SGOT) 19 11784467 0-40 IU/L ----Sodium 142 52268879 134-144 mmol/L ----BUN/Creatinine Ratio 18 20170906 9-23 ----eGFR If Africn Am 106 18699854 >59 mL/min/1.73 ----Calcium 9.4 69158202 8.7-10.2 mg/dL ----Carbon Dioxide, Total 22 74793699 18-29 mmol/L ----Albumin 4.3 63099707 3.5-5.5 g/dL ----Protein, Total 6.6 59720298 6.0-8.5 g/dL ----Glucose 141 35598153 65-99 mg/dL H ----BUN 14 19779314 6-24 mg/dL ----Creatinine 0.76 26026768 0.57-1.00 mg/dL ----eGFR If NonAfricn Am 92 [id number] >59 mL/min/1.73 TSH ----TSH 1.320 33780524 0.450-4.500 uIU/mL Lipid Panel ----LDL Cholesterol Calc 44 20933720 0-99 mg/dL ----VLDL Cholesterol Rob 31 65241086 5-40 mg/dL ----HDL Cholesterol 40 15198928 >39 mg/dL ----Triglycerides 153 12718042 0-149 mg/dL H ----Cholesterol, Total 115 33691611 100-199 mg/dL Summary Purpose eClinicalWorks Submission
--- OUTSIDE RECORDS SUMMARY | 2018-03-11 01:23 | XMS REPORT ---
Author Author Guanako Tam Organization eClinicalWorks Address Unknown Phone Unavailable Care Team Providers Care Bear Keeper Name Role Phone Guanako Tam CP Unavailable Allergies, Adverse Reactions, Alerts Substance Reaction Event Type penicillin as a baby Drug Allergy Septra diarrhea/vomiting Drug Allergy Encounters Encounter Location Date Consult [facility] September 02, 2013 cough [facility] October 31, 2013 Problems Problem Type Condition ICD-9 Code Onset Dates Condition Status Problem H/O parotidectomy V15.29 Active Problem Menorrhagia 626.2 Active Problem Umbilical hernia 553.1 Active Problem HTN (hypertension) 401.9 Active Problem Obesity 278.00 Active Problem Hyperlipidemia 272.4 Active Problem Fatty liver 571.8 Active Problem VIRIDIANA (obstructive sleep apnea) 327.23 Active Problem Menopause 627.2 Active Problem Uncontrolled diabetes mellitus 250.02 Active Assessment Right upper quadrant pain 789.01 Active Assessment Fatty liver 571.8 Active Assessment Uncontrolled diabetes mellitus 250.02 Active Assessment URI (upper respiratory infection) 465.9 Active Medications Medication Code System Code Instructions Start Date End Date Status Dosage Janumet XR [facility] [address]-14 50-1000 MG Orally Twice a day Active 1 tablet with meals Suzie Powers [facility] [address]-34 100 mg Orally Three times a day October 31, 2013 November 10, 2013 Active 1 capsule as needed Lisinopril [facility] [address]-85 40 MG Orally Once a day Active 1 tablet Zithromax [facility] [address]-75 250 MG Orally Once a day October 31, 2013 November 05, 2013 Active 2 tablets on the first day, then 1 tablet daily for 4 days Generess FE [facility] [address]-95 0.8-25 MG-MCG Orally Once a day Active 1 tablet Norvasc [facility] [address]-83 10 mg Orally Once a day October 31, 2013 Active 1 tablet Atorvastatin Calcium [facility] [address]-80 20 MG Orally Once a day Active 1 tablet Hydrochlorothiazide [facility] [address]-02 25 MG Orally Once a day Active 1 tablet Social History Social History Element Qualifiers Date Reported Depression Screening: . 09/04October 31, 2013 Flu Vaccine: . declines October 31, 2013 Ethnicity . Status , Is thai your primary language? Yes October 31, 2013 children . 3 October 31, 2013 Tobacco Use: . Are you a: never smoker October 31, 2013 Marital Status: . October 31, 2013 Do you drink alcohol? . 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 Family history Qualifier Description Comment Date Reported Mother alive Comment not available October 31, 2013 Children alive Comment not available October 31, 2013 Father alive congested heart failure October 31, 2013 Siblings alive Comment not available October 31, 2013 Vital Signs Date/Time: October 31, 2013 Weight 210 lbs Height 66 in Temperature 98.8 F Cardiac Monitoring Heart Rate 88 /min Blood Pressure Diastolic 102 mm Hg Blood Pressure Systolic 148 mm Hg Results CBC (INCLUDES DIFF/PLT) ABSOLUTE LYMPHOCYTES(-850-3900 cells/uL) 813 ABSOLUTE NEUTROPHILS(-8956-4561 cells/uL) 5898 BASOPHILS(- %) 0.1 HEMOGLOBIN(-11.7-15.5 g/dL) 13.6 EOSINOPHILS(- %) 1.4 HEMATOCRIT(-35.0-45.0 %) 41.7 MONOCYTES(- %) 10.2 MCV(-80.0-100.0 fL) 95.8 LYMPHOCYTES(- %) 10.7 MCH(-27.0-33.0 pg) 31.4 NEUTROPHILS(- %) 77.6 MCHC(-32.0-36.0 g/dL) 32.7 ABSOLUTE BASOPHILS(-0-200 cells/uL) 8 RDW(-11.0-15.0 %) 13.5 WHITE BLOOD CELL COUNT(-3.8-10.8 Thousand/uL) 7.6 PLATELET COUNT(-140-400 Thousand/uL) 242 ABSOLUTE EOSINOPHILS(-15-500 cells/uL) 106 RED BLOOD CELL COUNT(-3.80-5.10 Million/uL) 4.35 ABSOLUTE MONOCYTES(-200-950 cells/uL) 775 COMPREHENSIVE METABOLIC PANEL ALBUMIN/GLOBULIN RATIO(-1.0-2.5 (calc)) 1.3 GLOBULIN(-1.9-3.7 g/dL (calc)) 3.0 ALKALINE PHOSPHATASE(-33-115 U/L) 60 BILIRUBIN, TOTAL(-0.2-1.2 mg/dL) 0.4 CHLORIDE(-98-110 mmol/L) 98 ALT(-6-29 U/L) 60 POTASSIUM(-3.5-5.3 mmol/L) 4.2 AST(-10-35 U/L) 59 SODIUM(-135-146 mmol/L) 138 BUN/CREATININE RATIO(-6-22 (calc)) NOT APPLICABLE eGFR (-> OR=60 mL/min/1.73m2) 101 CALCIUM(-8.6-10.2 mg/dL) 9.4 CARBON DIOXIDE(-19-30 mmol/L) 27 ALBUMIN(-3.6-5.1 g/dL) 4.0 PROTEIN, TOTAL(-6.1-8.1 g/dL) 7.0 GLUCOSE(-65-99 mg/dL) 206 UREA NITROGEN (BUN)(-7-25 mg/dL) 11 CREATININE(-0.50-1.10 mg/dL) 0.81 eGFR NON-AFR. AUSTRIAN(-> OR=60 mL/min/1.73m2) 87 HEPATITIS PANEL, ACUTE W/REFLEX HEPATITIS C ANTIBODY(-NON-REACTIVE ) NON-REACTIVE SIGNAL TO CUT-OFF(-<1.00 ) 0.14 HEPATITIS B SURFACE ANTIGEN(-NON-REACTIVE ) NON-REACTIVE HEPATITIS B CORE ANTIBODY (IGM)(-NON-REACTIVE ) NON-REACTIVE HEPATITIS A IGM(-NON-REACTIVE ) NON-REACTIVE Summary Purpose eClinicalWorks Submission
--- OUTSIDE RECORDS SUMMARY | 2018-03-11 01:23 | XMS REPORT ---
Author Author Phil Overton [facility] eClinicalWorks Address Unknown Phone Unavailable Care Team Providers Care Pole Frame Construction Worker Name Role Phone Phil Overton CP [...] Active Assessment Peripheral neuropathy G62.9 Active Assessment Fatty liver K76.0 Active Assessment Encounter to discuss test results Z71.89 Active Problem Cervical radiculopathy M54.12 Active Problem Peripheral neuropathy G62.9 Active Problem Obstructive sleep apnea G47.33 Active Problem GERD (gastroesophageal reflux disease) K21.9 Active Problem Benign essential hypertension I10 Active Problem Hyperlipidemia E78.5 Active Medications Medication Code System Code Instructions Start Date End Date Status Dosage Soliqua [facility] 91389322133 100-33 UNT-MCG/ML Subcutaneous Active not defined Norvasc [facility] 29989183440 10 mg Orally Once a day Active 1 tablet Vitamin D (Ergocalciferol) [facility] 06067345108 50,000 Active TAKE ONE CAPSULE BY MOUTH ONCE WEEKLY FOR 12 WEEKS Trulicity 1.5mg [facility] 44986928061 1.5mg/0.5mL SQ Once a week Active 1.5mg/1 pen Doxycycline [facility] [address]-39 50 mg Orally Once a day Active 1 capsule on an empty stomach in the morning Jardiance [facility] 10485405532 25 MG Orally Once a day Active 1 tablet Famotidine ND 98296980988 20 MG Orally Once a day Active 1 tablet at bedtime Maria Luisa Morelos ND 90049504946 300 UNIT/ML Subcutaneous once a day Active 40 units Vitamin D (Ergocalciferol) [facility] 04428779900 50,000 Orally once per week Active 1 capsule Lisinopril [facility] [address]-82 40 Active TAKE ONE TABLET BY MOUTH DAILY Myrbetriq [facility] 17559742766 25 MG Orally Once a day Active 1 tablet Fenofibrate [facility] 72887485548 160 MG Orally Once a day Active 1 tablet with a meal Lisinopril [facility] 40755952631 40 MG Orally Once a day Active 1 tablet Atorvastatin Calcium [facility] 40875765186 40 MG Orally Once a day Active 1 tablet Ashleigh Contour Test [facility] 99645241841 - In Vitro use qid dx: E11.65 Active as directed Allergy [facility] 09818892113 4 MG Orally every 6 hrs Active 1 tablet as needed Gabapentin [facility] 65875099890 300 MG Orally Three times a day Active 1 capsule NovoLog Flexpen [facility] 88932628610 100 UNIT/ML Subcutaneous three times a day (tid) Active 10units Microlet Lancets [facility] 50054903171 - in vitro use bid dx: E11.65 Active as directed Atorvastatin Calcium [facility] [address]-30 40 Active TAKE ONE TABLET BY MOUTH DAILY MetFORMIN HCl ER [facility] 12979038947 500 mg Orally twice a day (bid) Dec 02, 2016 Active 2 tablet with evening meal Vital Signs Date/Time: October 18, 2017 BMI 34.21 Index Weight 212 lbs Height 66 in Cardiac Monitoring Heart Rate 88 /min Blood Pressure Diastolic 72 mm Hg Blood Pressure Systolic 124 mm Hg Results No Known Results Summary Purpose eClinicalWorks Submission
--- OUTSIDE RECORDS SUMMARY | 2018-03-11 01:23 | XMS REPORT ---
Author Author Phil Overton Organization eClinicalWorks Address Unknown Phone Unavailable Care Team Providers Care It Security Consultant Name Role Phone Phil Overton CP Unavailable [...] Instructions Start Date End Date Status Dosage [facility] [id number] 10 mg Orally Once a day Active 1 tablet Results No Known Results Summary Purpose eClinicalWorks Submission
--- OUTSIDE RECORDS SUMMARY | 2018-03-11 01:23 | XMS REPORT ---
Author Author Phil Overton [facility] eClinicalWorks Address Unknown Phone Unavailable Care Team Providers Care Agricultural Research Technician Name Role Phone Phil Overton CP Unavailable Allergies, Adverse Reactions, Alerts Substance Reaction Event Type penicillin as a baby Drug Allergy Septra diarrhea/vomiting Drug Allergy Encounters Encounter Location Date Hospital Follow Up [facility] Mar 05, 2014 Home Sleep Study [facility] Mar 24, 2014 Consult [facility] September 02, 2013 cough [facility] October 31, 2013 FEVER/NAUSEATED [facility] Feb 25, 2014 Problems Problem Type Condition ICD-9 Code Onset Dates Condition Status Assessment Pyelonephritis 590.80 Active Problem Umbilical hernia 553.1 Active Problem H/O parotidectomy V15.29 Active Assessment Fatigue 780.79 Active Problem Obesity 278.00 Active Problem Menopause 627.2 Active Problem Hyperlipidemia 272.4 Active Problem VIRIDIANA (obstructive sleep apnea) 327.23 Active Problem Menorrhagia 626.2 Active Problem Uncontrolled diabetes mellitus 250.02 Active Problem Fatty liver 571.8 Active Medications Medication Code System Code Instructions Start Date End Date Status Dosage Nor[facility]asc [facility] [address]-85 10 mg Orally Once a day October 31, 2013 Active 1 tablet Janumet XR [facility] [address]-12 50-1000 MG Orally Twice a day Active 1 tablet with meals Hydrochlorothiazide [facility] [address]-12 25 MG Orally Once a day Active 1 tablet Atorvastatin Calcium [facility] [address]-60 20 MG Orally Once a day Active 1 tablet Lisinopril [facility] [address]-61 40 MG Orally Once a day Active 1 tablet Bydureon [facility] [address]-55 2 MG Subcutaneous Active Unknown Social History Social History Element Qualifiers Date Reported Depression Screening: . 09/04Mar 31, 2014 Flu Vaccine: . declines Mar 31, 2014 Ethnicity . Status , Is greenlandic your primary language? Yes Mar 31, 2014 children . 3 Mar 31, 2014 Tobacco Use: . Are you a: never smoker Mar 31, 2014 Marital Status: . Mar 31, 2014 Do you drink alcohol? . 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 Vital Signs Date/Time: Mar 05, 2014 Weight 203 lbs Height 66 in Cardiac Monitoring Heart Rate 98 /min Blood Pressure Diastolic 72 mm Hg Blood Pressure Systolic 108 mm Hg Results TSH TSH(- mIU/L) 1.20 VITAMIN B12/FOLATE, SERUM PANEL VITAMIN B12(-200-1100 pg/mL) 874 FOLATE, SERUM(- ng/mL) 11.5 CBC Platelets(- ) 332 NEUTROPHILS(- ) MID-1.2,GRA-6.2 MCHC(- ) 32.1 MCH(- ) 32.3H MCV(- ) 100.4H WBC(- ) 9.0 RDW(- ) 12.9 RBC(- ) 4.34 Hemoglobin(- ) 14.0 Hematocrit(- ) 43.6 VITAMIN D, 1,25 DIHYDROXY LC/MS/MS VITAMIN D3, 1,25 (OH)2(- pg/mL) 44 VITAMIN D2, 1,25 (OH)2(- pg/mL) <8 VITAMIN D, 1,25 (OH)2, TOTAL(-18-72 pg/mL) 44 COMPREHENSIVE METABOLIC PANEL BUN/CREATININE RATIO(-6-22 (calc)) NOT APPLICABLE eGFR (-> OR=60 mL/min/1.73m2) 91 eGFR NON-AFR. INDONESIAN(-> OR=60 mL/min/1.73m2) 78 CREATININE(-0.50-1.10 mg/dL) 0.88 CHLORIDE(-98-110 mmol/L) 99 POTASSIUM(-3.5-5.3 mmol/L) 3.7 SODIUM(-135-146 mmol/L) 137 PROTEIN, TOTAL(-6.1-8.1 g/dL) 7.0 ALBUMIN(-3.6-5.1 g/dL) 4.0 GLOBULIN(-1.9-3.7 g/dL (calc)) 3.0 ALBUMIN/GLOBULIN RATIO(-1.0-2.5 (calc)) 1.3 UREA NITROGEN (BUN)(-7-25 mg/dL) 13 GLUCOSE(-65-99 mg/dL) 199 CARBON DIOXIDE(-19-30 mmol/L) 26 CALCIUM(-8.6-10.2 mg/dL) 9.0 AST(-10-35 U/L) 74 ALT(-6-29 U/L) 90 BILIRUBIN, TOTAL(-0.2-1.2 mg/dL) 0.6 ALKALINE PHOSPHATASE(-33-115 U/L) 78 CYTOMEGALOVIRUS ANTIBODIES (IGG,IGM) CYTOMEGALOVIRUS ANTIBODY (IGM)(- ) <0.2 CYTOMEGALOVIRUS ANTIBODY (IGG)(- ) < OR=0.90 WILEY ALMEIDA VIRUS ANTIBODY PANEL EBV NUCLEAR AG (EBNA) AB (IGG)(- ) 4.62 EBV VIRAL CAPSID AG (VCA) AB (IGG)(- ) 3.38 EBV VIRAL CAPSID AG (VCA) AB (IGM)(- ) < OR=0.90 Summary Purpose eClinicalWorks Submission
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
--- OUTSIDE RECORDS SUMMARY | 2018-03-11 01:24 | XMS REPORT ---
Author Author Rebeca Tam Organization [employer] Address Unknown Phone Unavailable Care Team Providers Care Business Improvement Manager Name Role Phone Rebeca Tam CP Unavailable Allergies, Adverse Reactions, Alerts [...] May 30, 2014 follow up on results [facility] June 30, 2015 RF [facility] Jun 02, 2014 ua [facility] Jun 10, 2014 routine physical [facility] Jun 08, 2015 Problems Problem Type Condition ICD-9 Code Onset Dates Condition Status Problem Obstructive sleep apnea G47.33 Active Assessment Hyperlipidemia E78.5 Active Problem DM w/o complication type II, uncontrolled E11.65 Active Assessment GERD (gastroesophageal reflux disease) K21.9 Active Problem Obesity E66.9 Active Problem Elevated LFTs 790.6 Active Problem Benign essential hypertension I10 Active Problem Hyperlipidemia E78.5 Active Problem Overweight E66.3 Active Assessment Peripheral neuropathy G62.9 Active Assessment Chest pain R07.9 Active Problem GERD (gastroesophageal reflux disease) K21.9 Active Assessment Dysuria R30.0 Active Problem UARS (upper airway resistance syndrome) 327.8 Active Problem 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 Problem Peripheral neuropathy G62.9 Active Problem Cervical radiculopathy M54.12 Active Assessment Cephalgia R51 Active Problem H/O parotidectomy V15.29 Active Assessment DM w/o complication type II, uncontrolled E11.65 Active Assessment Benign essential hypertension I10 Active Problem Menopause 627.2 Active Problem Umbilical hernia K42.9 Active Problem Menorrhagia 626.2 Active Problem Fatty liver 571.8 Active Medications Medication Code System Code Instructions Start Date End Date Status Dosage Lisinopril [facility] [address]-52 40 mg Orally Once a day Active 1 tablet Trulicity 1.5mg [facility] 7610-0752-88 1.5mg/0.5mL SQ Once a week Active 1.5mg/1 pen Gabapentin [facility] [address]-56 300 MG Orally Three times a day Active 1 capsule Invokana [facility] [address]-04 300 MG Orally Once a day Active 1 tablet Fish Oil [facility] [address]-13 1000 mg Orally twice a day (bid) Active 1 capsule Norvasc [facility] [address]-76 10 MG Orally Once a day Active 1 tablet Fenofibrate [facility] [address]-57 160 MG Orally Once a day Active 1 tablet with a meal Levaquin [facility] [address]-69 500 mg Orally Once a day June 30, 2015 July 10, 2015 Active 1 tablet Pepcid [facility] [address]-25 20 mg Orally Twice a day PRN for heartburn September 07, 2014 Active 1 tablet Hydrochlorothiazide [facility] [address]-57 25 MG Orally Once a day Active 1 tablet Janumet XR [facility] [address]-84 50-1000 MG Orally Twice a day Active 1 tablet with meals Atorvastatin Calcium [facility] [address]-47 40 MG Orally Once a day Active 1 tablet Toujeo SoloStar [facility] [address]-19 300 UNIT/ML Subcutaneous Active 19 units [facility] [address]-89 10 mg Orally Once a day June 30, 2015 Active 1 tablet Social History Social History Element Qualifiers Date 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 Status , Is nepali your primary language? Yes June 30, 2015 [...] alcohol? . Status: No June 30, 2015 Vital Signs Date/Time: June 30, 2015 Weight 206 lbs Height 66 in Temperature 98.9 F Blood Pressure Diastolic 78 mm Hg Blood Pressure Systolic 126 mm Hg Results URINE AUTO W/O SCOPE Summary Purpose eClinicalWorks Submission
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
--- OUTSIDE RECORDS SUMMARY | 2018-03-11 01:24 | XMS REPORT ---
Author Author Sera Shelton [facility] [employer] Address Unknown Phone Unavailable Care Team Providers Care Accounts Adjustable Clerk Name Role Phone Sera Shelton Unavailable Encounters Encounter Location Date Hospital Follow Up [facility] Mar 05, 2014 Home Sleep Study [facility] Mar 24, 2014 2 week follow up [facility] Mar 31, [address] [facility] Apr 03, [address] [facility] September 02, 2013 cough [facility] October 31, 2013 FEVER/NAUSEATED [facility] Feb 25, 2014 Night 2 Sleep Study [facility] Apr 02, 2014 CPAP Follow Up [facility] Apr [...] 14, 2014 Ethnicity . Status , Is arabic your primary language? Yes Apr 14, 2014 children . 3 Apr 14, 2014 Tobacco Use: . Are you a: never smoker Apr 14, 2014 Marital Status: . Apr 14, 2014 Do you drink alcohol? . 

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
--- OUTSIDE RECORDS SUMMARY | 2018-03-11 01:24 | XMS REPORT ---
Author Author Sera Davidson [facility] e[employer]Works Address Unknown Phone Unavailable Care Team Providers Care Lead Military Analyst Name Role Phone Sera Davidson Unavailable Encounters Encounter Location Date Hospital Follow Up [facility] Mar 05, 2014 Home Sleep Study [facility] Mar 24, 2014 2 week follow up [facility] Mar 31, 2014 Unknown [facility] Apr 03, 2014 Consult [facility] September 02, 2013 cough [facility] October 31, 2013 FEVER/NAUSEATED [facility] Feb 25, 2014 PHYSICAL [facility] May 30, 2014 Night 2 Sleep Study [facility] Apr 02, 2014 CPAP Follow Up [facility] Apr 14, 2014 Unknown [facility] Feb 10, 2015 US RESULTS [facility] August 11, 2014 Unknown [facility] September 07, 2014 Ultrasound [facility] Jun 18, 2014 renal us/ rebeca [facility] July 17, 2014 NV- FBW [facility] Jun 02, 2014 ua [facility] Jun [...] LFTs 790.6 Active Problem Hyperlipidemia 272.4 Active Problem H/O parotidectomy V15.29 Active Problem Umbilical hernia 553.1 Active Problem Menorrhagia 626.2 Active Social History Social History Element Qualifiers Date Reported Flu Vaccine: . declines August 11, 2014 Ethnicity . Status , Is turkish your primary language? Yes August 11, 2014 children . 3 August 11, 2014 Tobacco Use: . Are you a: never smoker August 11, 2014 Marital Status: . August 11, 2014 Do you drink alcohol? . 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
--- OUTSIDE RECORDS SUMMARY | 2018-03-11 01:24 | XMS REPORT ---
Author Author Phil Overton [facility] eClinicalWorks Address Unknown Phone Unavailable Care Team Providers Care Museum Director Name Role Phone Phil Overton CP Unavailable Allergies, Adverse Reactions, Alerts Substance Reaction Event Type penicillin as a baby Drug Allergy Septra diarrhea/vomiting Drug Allergy Encounters Encounter Location Date Hospital Follow Up [facility] Mar 05, 2014 Home Sleep Study [facility] Mar 24, 2014 2 week follow up [facility] Mar 31, [address] [facility] Apr 03, 2014 Consult [facility] September 02, 2013 cough [facility] October 31, 2013 FEVER/NAUSEATED [facility] Feb 25, 2014 Night [address] [facility] Apr 02, 2014 CPAP Follow Up [facility] Apr 14, [...] 790.6 Active Problem Hyperlipidemia 272.4 Active Assessment Uncontrolled diabetes mellitus 250.02 Active Assessment HTN (hypertension), benign 401.1 Active Assessment VIRIDIANA (obstructive sleep apnea) 327.23 Active Problem H/O parotidectomy V15.29 Active Assessment UARS (upper airway resistance syndrome) 327.8 Active Problem Umbilical hernia 553.1 Active Assessment Snoring 786.09 Active Problem Menorrhagia 626.2 Active Medications Medication Code System Code Instructions Start Date End Date Status Dosage Janumet XR [facility] [address]-25 50-1000 MG Orally Twice a day Active 1 tablet with meals Hydrochlorothiazide [facility] [address]-92 25 MG Orally Once a day Active 1 tablet Lisinopril [facility] [address]-11 40 MG Orally Once a day Active 1 tablet Norvasc [facility] [address]-00 10 mg Orally Once a day October 31, 2013 Active 1 tablet Bydureon [facility] [address]-77 2 MG Subcutaneous Active Unknown Social History Social History Element Qualifiers Date Reported Depression Screening: . 09/04Apr 14, 2014 Flu Vaccine: . declines Apr 14, 2014 Ethnicity . Status , Is slovenian your primary language? Yes Apr 14, 2014 children . 3 Apr 14, 2014 Tobacco Use: . Are you a: never smoker Apr 14, 2014 Marital Status: . Apr 14, 2014 Do you drink alcohol? . 

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
--- OUTSIDE RECORDS SUMMARY | 2018-03-11 01:25 | XMS REPORT ---
Author [facility] Address Unknown Phone Unavailable Care Team Providers Care Digital Marketing Apprentice Name Role Phone LAZARO ISABEL Unavailable Unavailable Payers Payer Name Policy Type Policy Number Effective Date Expiration Date Problems This patient has no known problems. Allergies, Adverse Reactions, Alerts Allergy Name Allergy Type Status Severity Reaction(s) Onset Date Inactive Date Treating Clinician Comments Penicillins DA Active SV 2018-02-22 00:00:00 sulfamethoxazole DA Active SV 2018-02-22 00:00:00 nitrofurantoin DA Active SV 2018-02-22 00:00:00 trimethoprim DA Active SV 2018-02-22 00:00:00 vancomycin DA Active SV 2018-02-22 00:00:00 Penicillins DA Active U 2017-08-18 00:00:00 sulfamethoxazole DA Active U 2017-08-18 00:00:00 nitrofurantoin DA Active U 2017-08-18 00:00:00 trimethoprim DA Active U 2017-08-18 00:00:00 vancomycin DA Active U 2017-08-18 00:00:00 Medications This patient has no known medications. Encounters Start Date/Time End Date/Time Encounter Type Admission Type Attending Clinicians Care Facility Care Department Encounter ID 2016-09-22 20:00:00 2016-09-22 23:59:00 [place] [facility] [id number]
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
[2018-03-11] MEDS ORDERED: KETOROLAC TROMETHAMINE 30 MG/ML VIAL IM STA (02:25)
[2018-03-11] MEDS ORDERED: CYCLOBENZAPRINE HCL 10 MG TAB PO PRN (02:30)
[2018-03-11] MEDS ORDERED: ULTRAM50 MG PO (03:01)
--- NOTE | 2018-03-11 03:14 | Diagnostic Imaging Report ---
Exam: Lumbar spine 3 views Indication: Fall, back, right thigh, arm and shoulder pain Comparison: None Findings: There are 5 lumbar-type vertebral bodies. The disc spaces are preserved. No fractures or malalignment. Surgical clips right upper quadrant of the abdomen. Impression: No evidence of acute injury to the lumbar spine. Signed by: Dr. Iris Fontanez M.D. on 03/11/2018 3:11 AM
--- NOTE | 2018-03-11 03:15 | Diagnostic Imaging Report ---
Exam: 2 views of the right hip Indication: Fall, right thigh pain Comparison: None Findings: The bones are well mineralized. No fractures dislocations, lytic or blastic lesions. The soft tissues are unremarkable. Impression: No evidence of a right hip fracture. Signed by: Dr. Iris Fontanez M.D. on 03/11/2018 3:12 AM
--- NOTE | 2018-03-11 03:16 | Diagnostic Imaging Report ---
Exam: 3 views of the right shoulder Indication: Fall, right shoulder pain Comparison: None Findings: The bones are well mineralized. Mild degenerative cystic changes of the right humeral head. No fracture or dislocation. Impression: No fracture or dislocation of the right shoulder. Signed by: Dr. Iris Fontanez M.D. on 03/11/2018 3:13 AM
== END 2018-03-11 03:40 | disposition home or self-care (01) ==
LOC: FSED 01:17
DX: M25.511 Pain in right shoulder (principal); M25.551 Pain in right hip; M54.5 Low back pain; S33.5XXA Sprain of ligaments of lumbar spine, initial encounter; M79.672 Pain in left foot; M79.671 Pain in right foot; W01.0XXA Fall on same level from slipping, tripping and stumbling without subsequent striking against object, initial encounter; Y92.008 Other place in unspecified non-institutional (private) residence as the place of occurrence of the external cause; F17.210 Nicotine dependence, cigarettes, uncomplicated
CPT/HCPCS: 72100; 99283

== ENCOUNTER 2019-02-18 19:11 | Emergency (ER) | payer BC, OTHER ==
[~2019-02-18] VITALS: Ht 170.2 cm; Wt 101.2 kg
[~2019-02-18 19:11] MED LIST changes: +ULTRAM50 MG PO
--- NOTE | 2019-02-18 22:19 | Diagnostic Imaging Report ---
EXAMINATION: Head CT without contrast. HISTORY:Headache and dizziness. COMPARISON:None. TECHNIQUE: Multidetector axial images were obtained from the foramen magnum to the vertex without contrast. The images were reconstructed using brain and bone algorithms. Thin section brain images were reformatted into coronal and sagittal planes. Dose modulation, iterative reconstruction, and/or weight based adjustment of the mA/kV was utilized to reduce the radiation dose to as low as reasonably achievable. Intravenous contrast: None IMAGE QUALITY: Acceptable. FINDINGS: Skull/scalp: No lytic or blastic. lesions. No surgical changes. Parenchyma: No abnormal density. No acute hemorrhage, mass or acute major vascular territorial infarct. Arteries: No density suggestive of thrombosis. Dural sinuses: No abnormal density suggestive of thrombosis. Ventricles: No hydrocephalus or displacement. Extra-axial spaces: No abnormal density. Brain volume: Normal for age. Craniocervical junction: No mass, Chiari malformation, or basilar invagination. Sella: No mass. Paranasal/mastoid sinuses: Imaged portions unremarkable. IMPRESSION: No intracranial abnormality. Signed by: Dr. Crista Whitman M.D. on 02/18/2019 10:15 PM
--- NOTE | 2019-02-18 22:28 | Diagnostic Imaging Report ---
History: Dizziness, neck pain. Comparison studies: None Technique: Axial images were obtained through the cervical region.. Coronal and sagittal images reconstructed from the axial data. Dose modulation, iterative reconstruction, and/or weight based adjustment of the mA/kV was utilized to reduce the radiation dose to as low as reasonably achievable. Intravenous contrast: None Findings: Fractures: None. Soft tissue injuries: None. Atlantoaxial articulation: Intact. Alignment: Loss of normal cervical lordosis is either positional or due to muscle spasm. No scoliosis. Cervicomedullary junction: No abnormalities. The foramen magnum is patent. Soft tissues: Right parotid gland is not visualized, possibly related to prior surgery or atrophic changes. Vertebrae: Expected postoperative changes from prior anterior cervical spine fusion from level C4-C7. The metallic hardware is intact. Suboptimal evaluation at this level due to metallic streak artifacts. No fractures, infection or neoplasm. Degenerative changes: C6-C7: Mild right foraminal stenosis due to uncovertebral arthrosis. No canal stenosis. IMPRESSION: 1. No acute cervical spine fracture or dislocation. Loss of normal cervical lordosis is either positional or due to muscle spasm. 2. Ligament, spinal cord and or vascular abnormalities cannot be excluded on the basis of this examination. 3. Expected postoperative changes from prior anterior cervical spine fusion from level C4-C7. Signed by: Dr. Crista Whitman M.D. on 02/18/2019 10:24 PM
--- NOTE | 2019-02-18 23:15 | Diagnostic Imaging Report ---
EXAMINATION: CXR 2 VIEW - HOPD INDICATION: Dizzy COMPARISON: None FINDINGS: TUBES and LINES: None. LUNGS: Lungs are well inflated. Lungs are clear. There is no evidence of pneumonia or pulmonary edema. PLEURA: No pleural effusion or pneumothorax. HEART AND MEDIASTINUM: Cardiac size is mildly enlarged. BONES AND SOFT TISSUES: No acute osseous lesion. Soft tissues are unremarkable. Cervical fixation hardware partially visualized in the lower cervical spine. Degenerative changes in the spine. UPPER ABDOMEN: No free air under the diaphragm. IMPRESSION: Mild cardiomegaly. Signed by: Chang Hilton DO on 02/18/2019 11:11 PM
[2019-02-19] MEDS ORDERED: POTASSIUM CHLORIDE 20 MEQ TAB CR PO STA (00:16)
[2019-02-19] MEDS ORDERED: POTASSIUM CHLORIDE 20 MEQ TAB CR PO ONE (00:23)
== END 2019-02-19 00:36 | disposition home or self-care (01) ==
LOC: FSED 19:11
DX: R55 Syncope and collapse (principal); R42 Dizziness and giddiness; R51 Headache; S13.4XXA Sprain of ligaments of cervical spine, initial encounter; M47.812 Spondylosis without myelopathy or radiculopathy, cervical region; E78.5 Hyperlipidemia, unspecified
CPT/HCPCS: 36415; 70450; 71046; 72125; 80053; 80076; 81003; 82553; 84484; 85025; 85651; 93005; 99284

== ENCOUNTER 2020-10-30 00:46 | Emergency (ER) | payer OTHER ==
[~2020-10-30] VITALS: Ht 170.2 cm; Wt 101.2 kg
[2020-10-30] MEDS ORDERED: KETOROLAC TROMETHAMINE 30 MG/ML VIAL IV STA (01:38)
[2020-10-30] MEDS ORDERED: SODIUM CHLORIDE 0.9% 1000ML 1,000 ML IV SCH (01:45)
[2020-10-30] MEDS ORDERED: METOCLOPRAMIDE HCL 10 MG/2ML VIAL IV ONE (01:45)
[2020-10-30] MEDS ORDERED: KETOROLAC TROMETHAMINE 30 MG/ML VIAL ONE (02:22)
[2020-10-30] MEDS ORDERED: SODIUM CHLORIDE 0.9% 1000ML 1,000 ML ONE (02:22)
[2020-10-30] MEDS ORDERED: METOCLOPRAMIDE HCL 10 MG/2ML VIAL ONE (02:22)
== END 2020-10-30 03:52 | disposition home or self-care (01) ==
LOC: FSED 00:51
DX: R51.9 Headache, unspecified (principal); E11.65 Type 2 diabetes mellitus with hyperglycemia; I10 Essential (primary) hypertension; R94.31 Abnormal electrocardiogram [ECG] [EKG]; E66.9 Obesity, unspecified; E78.5 Hyperlipidemia, unspecified; G47.33 Obstructive sleep apnea (adult) (pediatric)
CPT/HCPCS: 70450; 71046; 80053; 81003; 82553; 84484; 85025; 93005; 99284; J1885; J2765; J7030

== ENCOUNTER 2020-12-28 22:24 | Emergency (ER) | payer OTHER ==
[~2020-12-28] VITALS: Ht 170.2 cm; Wt 90.7 kg
[2020-12-28] MEDS ORDERED: ACETAMINOPHEN 325 MG TAB ONE (23:06)
[2020-12-28] MEDS ORDERED: IBUPROFEN 600 MG TAB ONE (23:06)
[2020-12-28] MEDS ORDERED: ONDANSETRON HCL INJ 2MG/ML 2ML 2 MG/ML VIAL ONE (23:07)
[2020-12-28 23:31] LABS: BASOPHILS % 0.3 % (0.0-1.0); EOSINOPHILS # (AUTO) 0.2 (0.0-0.4); EOSINOPHILS % 2.5 % (0.0-6.0); HEMATOCRIT 45.4 % (34.2-44.1); HEMOGLOBIN 14.5 g/dL (12.0-16.0); LYMPHOCYTES # (AUTO) 0.6 (1.0-3.2); LYMPHOCYTES % 7.6 % (18.0-39.1); MEAN CORPUSCULAR HGB CONC 31.9 g/dL (31-35); MONOCYTES # (AUTO) 0.6 (0.2-0.8); MONOCYTES % 8.4 % (4.4-11.3); NEUTROPHILS # (AUTO) 5.8 (2.1-6.9); NEUTROPHILS % 80.5 % (38.7-80.0); PLATELET COUNT 208 x10e3/uL (140-360); RED BLOOD COUNT 4.83 x10e6/uL (3.6-5.1); RED CELL DISTRIBUTION WIDTH 14.3 % (11.7-14.4)
[2020-12-28] MEDS ORDERED: IOPAMIDOL 370 MG/ML 200 ML INFUS..BTL INJ ONE (23:33)
[2020-12-28] MEDS ORDERED: SODIUM CHLORIDE 0.9% 50ML 50 ML ONE (23:33)
[2020-12-28] MEDS ORDERED: DEXAMETHASONE SOD PHOS INJ 4 MG/ML VIAL IV STA (23:34)
[2020-12-29] MEDS ORDERED: DEXAMETHASONE SOD PHOS INJ 4 MG/ML VIAL ONE (00:23)
[2020-12-29] MEDS ORDERED: SODIUM CHLORIDE 0.9% 250ML 250 ML ONE (00:24)
[2020-12-29] MEDS ORDERED: PREDNISONE20 MG PO (01:29)
== END 2020-12-29 02:00 | disposition home or self-care (01) ==
LOC: FSED 23:11
DX: U07.1 COVID-19 (principal); R05 Cough; R10.32 Left lower quadrant pain; R53.81 Other malaise; I10 Essential (primary) hypertension; E11.9 Type 2 diabetes mellitus without complications; Z79.84 Long term (current) use of oral hypoglycemic drugs; E78.5 Hyperlipidemia, unspecified; G47.33 Obstructive sleep apnea (adult) (pediatric); Z79.899 Other long term (current) drug therapy
CPT/HCPCS: 36415; 71260; 80048; 80076; 85025 ×2; 99284; J0456; J1100; J2405; J7050; Q9967; U0002

== ENCOUNTER 2021-03-25 00:58 | Emergency (ER) | payer OTHER ==
[~2021-03-25] VITALS: Ht 170.2 cm; Wt 90.7 kg
[~2021-03-25 00:58] MED LIST changes: +PREDNISONE20 MG PO
[2021-03-25] MEDS ORDERED: TESSALON PERLE100 MG PO (01:59)
[2021-03-25] MEDS ORDERED: CODEINE-GUAIFE120 ML PO (02:02)
== END 2021-03-25 02:13 | disposition home or self-care (01) ==
LOC: FSED 01:57
DX: R05.9 Cough, unspecified (principal); E11.9 Type 2 diabetes mellitus without complications; I10 Essential (primary) hypertension; E78.5 Hyperlipidemia, unspecified; G47.30 Sleep apnea, unspecified; Z86.16 Personal history of COVID-19
CPT/HCPCS: 99282

== ENCOUNTER 2022-07-25 20:16 | Emergency (ER) | payer OTHER ==
[~2022-07-25] VITALS: Ht 170.2 cm; Wt 90.7 kg
[~2022-07-25 20:16] MED LIST changes: +CODEINE-GUAIFE120 ML PO; +TESSALON PERLE100 MG PO
[2022-07-25] MEDS ORDERED: CLONIDINE HCL 0.1 MG TAB ONE (22:43)
[2022-07-25] MEDS ORDERED: CLONIDINE HCL 0.1 MG TAB PO ONE (22:45)
[2022-07-25] MEDS ORDERED: ONDANSETRON HCL INJ 2MG/ML 2ML 2 MG/ML VIAL IV STA (23:57)
[2022-07-26] MEDS ORDERED: SODIUM CHLORIDE 0.9% 1000ML 1,000 ML IV SCH
[2022-07-26] MEDS ORDERED: ONDANSETRON HCL INJ 2MG/ML 2ML 2 MG/ML VIAL ONE
[2022-07-26] MEDS ORDERED: SODIUM CHLORIDE 0.9% 500ML 500 ML ONE
[2022-07-26] MEDS ORDERED: CEFTRIAXONE 1 GM VIAL ONE (00:45)
[2022-07-26] MEDS ORDERED: CEFUROXIME500 MG PO (00:53)
== END 2022-07-26 01:20 | disposition home or self-care (01) ==
LOC: FSED 20:19
DX: I10 Essential (primary) hypertension (principal); E11.65 Type 2 diabetes mellitus with hyperglycemia; R51.9 Headache, unspecified; N39.0 Urinary tract infection, site not specified; R11.0 Nausea; E78.5 Hyperlipidemia, unspecified; E66.9 Obesity, unspecified
CPT/HCPCS: 70450; 71046; 80053; 81003; 85025; 99284; J0696; J2405; J7040

== ENCOUNTER 2023-03-03 21:07 | Emergency (ER) | payer OTHER ==
[~2023-03-03] VITALS: Ht 170.2 cm; Wt 106.1 kg
[~2023-03-03 21:07] MED LIST changes: +CEFUROXIME500 MG PO; +CEPHALEXIN500 MG PO; +ULTRAM 50MG50 MG PO
[2023-03-03] MEDS ORDERED: MEDROL4 M2 PEG (21:38)
[2023-03-03 21:50] VITALS: BP 125/62; PULSE 78; RESP 16; TEMP 98.9; O2SAT 98
== END 2023-03-03 21:48 | disposition home or self-care (01) ==
LOC: ER 21:15
DX: M25.551 Pain in right hip (principal); I10 Essential (primary) hypertension; E11.9 Type 2 diabetes mellitus without complications; E78.5 Hyperlipidemia, unspecified; Z86.73 Personal history of transient ischemic attack (TIA), and cerebral infarction without residual deficits
CPT/HCPCS: 99282